=== PATIENT | male | born 1950 | race Caucasian/White ===

== ENCOUNTER → 2018-03-06 14:37 | Outpatient (CLI) | payer MEDICARE, SELFPAY ==
--- NOTE | 2018-03-06 14:45 | XR_ITS ---
XR shoulder RT min 2V HISTORY: ITS.REASON: COMPLETE TEAR OF ROTATOR CUFF ORDERING PHYSICIAN: Hema Perez MD PATIENT AGE: 67 years FINDINGS: Hypertrophic changes are present involving the acromioclavicular joint with mild subacromial stenosis. No fracture or dislocation. There is prominent spurring along the inferior aspect of the AC joint which may result in impingement symptomatology. There are multiple old right-sided rib fractures IMPRESSION: Acromioclavicular arthropathy with subacromial stenosis
== END ==
PROVIDERS: PCP Family Medicine; Visit Provider Family Medicine
DX: M75.121 Complete rotator cuff tear or rupture of right shoulder, not specified as traumatic (principal)
CPT/HCPCS: 73030

== ENCOUNTER 2018-12-17 18:22 | Observation (INO) ==
[2018-12-17 18:58] LABS: Basophils % 0.4 % (0.1-2.0); Eosinophils # 0.1 K/mm3 (0.0-0.4); Eosinophils % 0.8 % (0.1-12.0); Hematocrit 44.6 % (42.0-52.0); Hemoglobin 14.3 g/dL (14.1-18.0); Lymphocytes # 1.6 K/mm3 (0.7-4.5); Mean Corpuscular Hemoglobin 31.4 pg (27.0-31.2); Mean Corpuscular Volume 98.1 fl (80-94); Mean Platelet Volume 7.3 fl (7.4-10.4); Monocytes # 0.6 K/mm3 (0.1-1.0); Monocytes % 7.1 % (1.7-9.3); Neutrophils # 6.1 K/mm3 (1.8-7.8); Neutrophils % 72.8 % (37.0-80.0); Platelet Count 236 K/mm3 (142-424); Red Blood Count 4.54 M/mm3 (4.60-6.20); White Blood Count 8.4 K/mm3 (4.8-10.8)
[2018-12-17 19:13] LABS: Albumin Level 3.7 gm/dL (3.4-5.0); Albumin/Globulin Ratio 0.9 (1.1-1.8); Bilirubin,Total 0.7 mg/dL (0.2-1.0); Calcium 8.7 mg/dL (8.5-10.1); Globulin 4.3 gm/dl (1.3-3.2)
--- NOTE | 2018-12-17 20:40 | Emergency Department Note ---
ED Disposition Clinical Impression: Acute exacerbation of chronic obstructive airways disease Disposition: Admitted as Observation Condition on Discharge: Fair - Critical Care Critical Care Time: No Attestation: On 12/17/18, the high probability of a clinically significant, sudden or life threatening deterioration of the following system(s) required my full and direct attention, intervention and personal management. The time I documented below is in addition to time spent performing reported procedures but includes the foll owing listed in this critical care notation. Medical Decision Making - Medical Records Medical records reviewed: Yes: I reviewed the patient's medical records. - Jamal Inquiry Pt receiving controlled substance: No Jamal was queried for this patient: No Vital Signs: 12/17/18 18:24 12/17/18 18:50 12/17/18 19:53 Temperature 98.5 F Temperature Source Oral Pulse Rate 76 Pulse Rate [Right Brachial] 79 71 Respiratory Rate 15 15 Blood Pressure [Right Arm] 143/74 H 120/61 Blood Pressure Mean [Right Arm] 97 80 02 Sat by Pulse Oximetry 93 L 95 Oxygen Delivery Method Nasal Cannula Oxygen Flow Rate (LPM) 3 - Lab Data Lab results reviewed: Yes: I reviewed the patient's lab results. Lab Results 12/17/18 18:30: WBC 8.4, RBC 4.54 L, Hgb 14.3, Hct 44.6, MCV 98.1 H, MCH 31.4 H, MCHC 32.0, RDW 14.0, Plt Count 236, MPV 7.3 L, Neut % (Auto) 72.8, Lymph % (Auto) 19.0, [place] % (Auto) 7.1, Eos % (Auto) 0.8, Baso % (Auto) 0.4, Neut # (Auto) 6.1, Lymph # (Auto) 1.6, [place] # (Auto) 0.6, Eos # (Auto) 0.1, Baso # (Auto) 0.0 12/17/18 18:30: Sodium 137, Potassium 4.0, Chloride 97 L, Carbon Dioxide 35 H, Anion Gap 9.0, BUN 17, Creatinine 0.97, Estimated Creat Clear 116, Estimated GFR 77, Est GFR ( Amer) 93, Glucose 104, Calcium 8.7, Total Bilirubin 0.7, AST 15, ALT 18, Alkaline Phosphatase 83, Troponin I 0.06, Total Protein 8.0, Albumin 3.7, Globulin 4.3 H, Albumin/Globulin Ratio 0.9 L 12/17/18 18:30: Lactate 1.1 Result diagrams: 12/17/18 18:30 12/17/18 18:30 Orders (Tests/Meds): ED MEDICATIONS Generic Name Dose Route Start Last Admin Trade Name Freq PRN Reason Stop Dose Admin Acetaminophen 650 mg 12/17/18 20:30 Acetaminophen 325mg Tab PO 01/16/19 20:29 Q4HP PRN As Needed for Fever or Pain Albuterol Sulfate 2.5 mg 12/17/18 20:34 Albuterol 0.083% 2.5mg/3ml [facility] 01/16/19 20:33 Q1HP PRN Shortness Of Breath Albuterol/Ipratropium 3 ml 12/17/18 20:34 Duoneb 3ml [facility] 01/16/19 20:33 Q1HP PRN Shortness Of Breath Docusate Sodium 100 mg 12/18/18 09:00 Docusate Sodium 100mg Cap PO 01/17/19 08:59 DAILY SANDI Levofloxacin/Dextrose 750 mg in 150 mls @ 100 mls/hr 12/17/18 20:45 Levofloxacin 750mg/150ml Premix IV 12/31/18 20:44 Q24H SANDI Protocol Ibuprofen 400 mg 12/17/18 20:30 Motrin 400mg Tablet PO 01/16/19 20:29 Q6HP PRN Mild Pain Nicotine 21 mg 12/17/18 20:30 Nicoderm 21mg/24hr Patch TD 01/16/19 20:29 DAILYP PRN Nicotine Cravings Ondansetron HCl 4 mg 12/17/18 20:30 Zofran 4mg/2ml Vial IV 01/16/19 20:29 Q8HP PRN Nausea Pantoprazole Sodium 40 mg 12/18/18 09:00 Protonix 40mg Tablet PO 01/17/19 08:59 DAILY SANDI Discontinued Medications Generic Name Dose Route Start Last Admin Trade Name Freq PRN Reason Stop Dose Admin Dexamethasone Sodium Phosphate 10 mg 12/17/18 18:53 12/17/18 19:02 Decadron 4mg/Ml 1ml Vial IV 12/17/18 18:54 10 mg ONCE ONE Administration Methylprednisolone Sodium Succinate 125 mg 12/17/18 18:27 12/17/18 19:07 Solu-Medrol 125mg/2ml Vial IM 12/17/18 18:28 125 mg ONCE ONE Administration Methylprednisolone Sodium Succinate 125 mg 12/17/18 19:02 12/17/18 19:03 Solu-Medrol 125mg/2ml Vial IV 12/17/18 19:03 125 mg ONCE ONE Administration Sodium Chloride 3 ml 12/17/18 20:34 Sodium Chloride 3% 15ml Neb IH 12/17/18 20:35 ONCE ONE ORDERS Category Date Time Status XR chest portable Stat Exams 12/17/18 18:26 Taken Blood Culture Stat Micro 12/17/18 18:30 Received - Radiology Data #1 Image(s): Chest (Single view chest x-ray no apparent changes from previous x- rays with chronic fibrotic change) Image Reviewed: Yes I reviewed the patient's radiology image Medical Decision Narrative: Differential diagnosis exacerbation of COPD, pneumonia, dyspnea shortness of b reath Patient's chest x-ray is no significant from previous x-ray but it is a single view film Patient was treated with IV steroids DuoNeb and will be started on Levaquin Patient improved with treatment discussed with Dr. Hurt covering for Dr. Perez General Adult HPI - General Chief complaint: Shortness of Breath/Dyspnea Stated complaint: SOA Time Seen by Provider: 12/17/18 18:30 Mode of Arrival: Wheelchair Limitations: No Limitations Description of Symptoms (Recalled from ER Triage Doc. by RN): c/o soa x 3-4 days, heavy smoker, hx of copd - History of Present Illness HPI narrative: Patient with history of COPD on 5 L of oxygen at home who still smokes regularly complains of exacerbation of COPD dyspnea arrives via ambulance - Related Data Home Medications Medication Instructions Recorded Confirmed albuterol sulfate 90 mcg/actuation 1 puff INHALATION Q4-6H PRN 03/27/18 breath activated powder inhaler albuterol sulfate HFA 90 1 puff INHALATION Q4-6H PRN 03/27/18 mcg/actuation aerosol inhaler aspirin 325 mg tablet 325 mg PO BID 03/27/18 atorvastatin 80 mg tablet 80 mg PO ONCE 03/27/18 carvedilol 25 mg tablet 25 mg PO BID 03/27/18 clopidogrel 75 mg tablet 75 mg PO ONCE 03/27/18 fluoxetine 40 mg capsule 40 mg PO BID 03/27/18 fluticasone 250 mcg-salmeterol 50 1 inh INHALATION BID 03/27/18 mcg/dose blistr powdr for inhalation furosemide 40 mg tablet 40 mg PO BID 03/27/18 isosorbide mononitrate ER 30 mg 30 mg PO QAM 03/27/18 tablet,extended release 24 hr montelukast 10 mg tablet 10 mg PO QPM 03/27/18 ranitidine 150 mg capsule 150 mg PO QHS 03/27/18 sacubitril 24 mg-valsartan 26 mg 1 tab PO BID 03/27/18 tablet spironolactone 25 mg tablet 25 mg PO BID 03/27/18 Allergies Allergy/AdvReac Type Severity Reaction Status Date / Time Tetracyclines [TETRACYCLINES] Allergy Unknown I-RASH Verified 12/17/18 18:52 [facility] History - Hepatitis A Screen Drug use history?: No High risk sexual behaviors?: No History of sexually transmitted infection?: No Currently employed?: No Childcare worker?: No Do you have indoor plumbing?: Yes Do you have electricity?: Yes Attestation statement:: This patient has been screened for Hepatitis A risk factors. I have reviewed the patient's past medical history: Yes - Social History Smoking Status: Current every day smoker Alcohol Intake: never ROS Obtained: Yes All systems reviewed & no additional complaints - Constitutional Constitutional: Reports as per HPI - Respiratory Respiratory: Yes as per HPI, Yes dyspnea, Yes dyspnea on exertion, Yes wheezing Physical Exam - General General appearance: alert, anxious Comment: Patient is tachypneic using accessory muscles feeling no evidence cyanosis - Head Head exam: atraumatic, normocephalic, normal inspection - Eye Eye exam: Present: normal appearance, PERRL, EOMI - ENT ENT exam: Present: normal exam, normal oropharynx, mucous membranes moist, TM's normal bilaterally, normal external ear exam - Neck Neck exam: Present: normal inspection, full ROM, trachea midline. Absent: meningismus, lymphadenopathy - Chest Chest inspection: Present: normal inspection, symmetric chest wall rise. Abse nt: tenderness - Respiratory Respiratory exam: Present: respiratory distress, accessory muscle use (Distant breath sounds bilaterally), prolonged expiratory phase - Cardiovascular Cardiovascular exam: Present: regular rate, normal rhythm. Absent: JVD - Abdominal Exam Abdominal exam: Present: soft, normal bowel sounds. Absent: distention, tenderness, guarding - Extremities Exam Extremities exam: Present: normal inspection, full ROM, normal capillary refill. Absent: calf tenderness - Back Exam Back exam: Present: normal inspection. Absent: tenderness - Neurological Exam Neurological exam: Present: alert, oriented X3 - Psychiatric Psychiatric exam: Present: normal affect, normal mood - Skin Skin exam: Present: warm, dry, intact, normal color - Lymphatic Lymphatic Findings: no adenopathy
--- NOTE | 2018-12-18 07:12 | History & Physical Report ---
*Admission Date: 12/17/18 *Chief complaint: Shortness of breath *History of present illness: 68-year-old male with oxygen dependent COPD and coronary artery disease presented to the emergency department with 1 week of increasing shortness of breath. Patient had dyspnea at rest that was worse and also had worsening dyspnea on exertion. Patient estimates he could probably only walk about 30 feet before he became so short of breath and weak that he felt like he was at risk for falling. He denies fevers or chills. He has no change in his baseline angina. Cough is primarily been nonproductive. He denies pedal edema. When he feels short of breath he does get intermittently from use of his albuterol i nhaler [facility] History I have reviewed the patient's past medical history: Yes Medical History: Reports:: Arrhythmia, Atrial Fibrillation, Chronic Obstructive Pulmonary Disease (COPD), Coronary Artery Disease, Hyperlipidemia, Hypertension Denies:: Cancer, Diabetes Mellitus Type 1, Diabetes Mellitus Type 2, MRSA Have you ever received a pneumonia vaccine?: Yes Have you received a flu vaccine this season?: Yes Other Medical History: Reports: Arthritis Laterality Cases: Left: Arthroscopy Shoulder Other Surgeries: Yes: Colonoscopy Amputation: No Fractures: Yes ((R) wrist, ribs) - *Social History Educational Level: Completed High School Smoking Status: Current every day smoker Tobacco Type: cigarettes # Packs/Day (cigarettes): 1 #Yrs smoked (if former smoker): 60 Alcohol Intake: current Alcohol Intake Frequency:: 3 or more drinks per day Substance Use Type: marijuana Occupational Status: retired Housing: apartment Household Members: none Travel in the last 8 weeks: None - Psychiatric History Expresses thoughts of harming self/others: None Suicide Plan Description: No Plan *Family Hx:: Asthma, Coronary Artery Disease, Heart Attack, Hyperlipidemia, Hypertension Review of Systems - Review of Systems Review of systems:: pertinent systems reviewed and negative unless documented below - Constitutional Denies body ache(s), Denies chills, Denies fever(s) - *Cardiovascular Reports chest pain, Reports chest pain with activity - *Respiratory Reports chest congestion, Reports cough, Reports shortness of breath, Reports shortness of breath with activity, Denies change in phlegm color, Denies excessive phlegm production, Denies coughing up blood, Denies pain on inspiration, Denies pain with cough - *Gastrointestinal Denies abdominal pain - *Genitourinary Denies difficulty urinating Meds Home Medications Medication Instructions Recorded Confirmed Type albuterol sulfate 90 mcg/actuation 1 puff INHALATION Q4-6H PRN 03/27/18 History breath activated powder inhaler albuterol sulfate HFA 90 1 puff INHALATION Q4-6H PRN 03/27/18 12/17/18 History mcg/actuation aerosol inhaler aspirin 325 mg tablet 325 mg PO BID 03/27/18 12/17/18 History atorvastatin 80 mg tablet 80 mg PO ONCE 03/27/18 12/17/18 History carvedilol 25 mg tablet 25 mg PO BID 03/27/18 12/17/18 History clopidogrel 75 mg tablet 75 mg PO ONCE 03/27/18 History fluoxetine 40 mg capsule 40 mg PO BID 03/27/18 12/17/18 History fluticasone 250 mcg-salmeterol 50 1 inh INHALATION BID 03/27/18 History mcg/dose blistr powdr for inhalation furosemide 40 mg tablet 40 mg PO BID 03/27/18 History isosorbide mononitrate ER 30 mg 30 mg PO QAM 03/27/18 12/17/18 History tablet,extended release 24 hr montelukast 10 mg tablet 10 mg PO QPM 03/27/18 12/17/18 History ranitidine 150 mg capsule 150 mg PO QHS 03/27/18 12/17/18 History sacubitril 24 mg-valsartan 26 mg 1 tab PO BID 03/27/18 12/17/18 History tablet spironolactone 25 mg tablet 25 mg PO BID 03/27/18 12/17/18 History Apixaban [Eliquis] 5 mg PO BID 12/17/18 12/17/18 History Melatonin/Pyridoxine [Melatonin 5 1 each PO HS 12/17/18 12/17/18 History mg Tablet] Allergies Allergy/AdvReac Type Severity Reaction Status Date / Time Tetracyclines [TETRACYCLINES] Allergy Unknown I-RASH Verified 12/17/18 18:52 Exam Vital signs and Labs for Last 24 Hours: Temp Pulse Resp BP Pulse Ox 97.9 F 78 20 151/77 H 96 12/18/18 04:00 12/18/18 04:00 12/18/18 04:00 12/18/18 04:00 12/18/18 04:00 Laboratory Results - last 24 hr 12/17/18 18:30: WBC 8.4, RBC 4.54 L, Hgb 14.3, Hct 44.6, MCV 98.1 H, MCH 31.4 H, MCHC 32.0, RDW 14.0, Plt Count 236, MPV 7.3 L, Neut % (Auto) 72.8, Lymph % (Auto) 19.0, [place] % (Auto) 7.1, Eos % (Auto) 0.8, Baso % (Auto) 0.4, Neut # (Auto) 6.1, Lymph # (Auto) 1.6, [place] # (Auto) 0.6, Eos # (Auto) 0.1, Baso # (Auto) 0.0 12/17/18 18:30: Sodium 137, Potassium 4.0, Chloride 97 L, Carbon Dioxide 35 H, Anion Gap 9.0, BUN 17, Creatinine 0.97, Estimated Creat Clear 116, Estimated GFR 77, Est GFR ( Amer) 93, Glucose 104, Calcium 8.7, Total Bilirubin 0.7, AST 15, ALT 18, Alkaline Phosphatase 83, Troponin I 0.06, Total Protein 8.0, Albumin 3.7, Globulin 4.3 H, Albumin/Globulin Ratio 0.9 L 12/17/18 18:30: Lactate 1.1 12/18/18 05:59: POC Glucose 172 H I & O for Last 24 hours: Intake & Output 12/15/18 12/16/18 12/17/18 12/18/18 11:59 11:59 11:59 11:59 Output Total 450 / 450 Balance -450 / -450 Weight 259 lb 0.69 oz Microbiology Reports for the Last 24 Hours: Microbiology 12/17/18 19:27 Sputum - Expectorated Sputum Gram Stain - Final Narrative: Patient is sitting on the side of the bed. He has conversational dyspnea. Nasal cannula is in place. Oropharynx is moist. Neck is without lymphadenopathy or jugular venous distention. Lungs have poor aeration with wheezing and rhonchi when deep breathing triggers cough. Heart has an irregularly irregular rate and rhythm. Abdomen is obese. Extremities are without edema. Assessment and Plan (1) Acute on chronic systolic CHF (congestive heart failure) Current visit: Yes Status: Acute Category: Medical Code(s): I50.23 - Acute on chronic systolic (congestive) heart failure (2) Acute exacerbation of chronic obstructive airways disease Current visit: Yes Status: Acute Category: Medical Code(s): J44.1 - Chronic obstructive pulmonary disease with (acute) exacerbation (3) Coronary artery disease Current visit: Yes Status: Acute Category: Medical Code(s): I25.10 - Atherosclerotic heart disease of [place] coronary artery without angina pectoris - Assessment and plan all Dx Assessment and Plan for all problems:: 1. Start Solu-Medrol 60 mg every 8 hours 2. Add Lasix 40 mg IV twice daily 3. Continue duo nebs. 4. Start home medications
--- NOTE | 2018-12-18 07:34 | Pharmacy Consult Notes ---
[facility] Pharmacy VTE Monitoring - Patient Demographics Admission date: 12/17/18 Report Date: 12/18/18 Time: 07:33 Allergies/Adverse Reactions: Patient Allergies Tetracyclines [TETRACYCLINES] Allergy (Unknown, Verified 12/17/18 18:52) I-RASH Height: 1.8 m Weight: 117.5 kg Patient Problems: Current Active Problems Acute exacerbation of chronic obstructive airways disease (Acute) Acute on chronic systolic CHF (congestive heart failure) (Acute) Coronary artery disease (Acute) - VTE Risk Labs: VTE Related Lab Results Hgb 14.3 g/dL (14.1-18.0) 12/17/18 18:30 Hct 44.6 % (42.0-52.0) 12/17/18 18:30 Plt Count 236 K/mm3 (142-424) 12/17/18 18:30 BUN 17 mg/dL (7-18) 12/17/18 18:30 Creatinine 0.97 mg/dL (0.70-1.30) 12/17/18 18:30 Estimated Creat Clear 116 mL/min (50-200) 12/17/18 18:30 Was VTE Risk Assessment Performed: Yes VTE Risk Level: Moderate Risk - Prophylaxis VTE Prophylaxis Ordered?: Yes Types of VTE Prophylaxis: TEDS Knee High, Pharmacological Location of Applied Device: Bilateral Lower Extremeties Pharmacologic Type: Other (ELIQUIS) - VTE Diagnosis Confirmed Treatment or plan recommended: Continue Current Treatment
[2018-12-18 08:25] LABS: Anion Gap 13.8 mEq/L (5-15); Potassium 3.8 mmoL/L (3.5-5.1)
[2018-12-18 16:32] LABS: Basophils % 0.1 % (0.1-2.0); Eosinophils % 0.1 % (0.1-12.0); Hematocrit 43.5 % (42.0-52.0); Hemoglobin 13.8 g/dL (14.1-18.0); Lymphocytes # 0.7 K/mm3 (0.7-4.5); Lymphocytes % 9.8 % (10-50); Mean Corpuscular HGB Conc 31.7 g/dL (31.8-35.4); Mean Corpuscular Hemoglobin 31.4 pg (27.0-31.2); Mean Corpuscular Volume 99.1 fl (80-94); Mean Platelet Volume 9.1 fl (7.4-10.4); Monocytes # 0.1 K/mm3 (0.1-1.0); Monocytes % 1.9 % (1.7-9.3); Neutrophils # 6.6 K/mm3 (1.8-7.8); Neutrophils % 88.1 % (37.0-80.0); Platelet Count 221 K/mm3 (142-424); Red Blood Count 4.39 M/mm3 (4.60-6.20); Red Cell Distribution Width 13.5 % (11.5-17.5); White Blood Count 7.4 K/mm3 (4.8-10.8)
[2018-12-18 16:55] LABS: Lymphocytes % 6 % (10-50); Monocytes % 2 % (2-9); Neutrophils % 88 % (42-76); Total Cells Counted 100
--- NOTE | 2018-12-19 07:10 | Progress Note ---
Internal Medicine - PN: Subj Interval history: Patient reports overall a good night of sleep other than some nausea that was relieved with medication. Breakfast was just delivered and he plans to sit on side of bed and eat. He has not ambulated in room or to bathroom to assess shortness of breath with activity but from what he can tell SOB is overall improved. Denies cough this morning. Exam Vital signs and Labs for Last 24 Hours: Temp Pulse Resp BP Pulse Ox 97.8 F 75 20 106/58 L 96 12/19/18 04:00 12/19/18 04:00 12/19/18 04:00 12/19/18 04:00 12/19/18 04:00 Laboratory Results - last 24 hr 12/18/18 07:35: WBC 7.4, RBC 4.39 L, Hgb 13.8 L, Hct 43.5, MCV 99.1 H, MCH 31.4 H, MCHC 31.7 L, RDW 13.5, Plt Count 221, MPV 9.1, Neut % (Auto) 88.1 H, Lymph % (Auto) 9.8 L, [place] % (Auto) 1.9, Eos % (Auto) 0.1, Baso % (Auto) 0.1, Neut # (Auto) 6.6, Lymph # (Auto) 0.7, [place] # (Auto) 0.1, Eos # (Auto) 0.0, Baso # (Auto) 0.0, Total Counted 100, Neutrophils % (Manual) 88 H, Band Neutrophils % 1.0, Lymphocytes % (Manual) 6 L, Atypical Lymphs % 3.0, Monocytes % (Manual) 2, Platelet Estimate Normal 12/18/18 07:35: Sodium 133 L, Potassium 3.8, Chloride 92 L, Carbon Dioxide 31, A nion Gap 13.8, BUN 23 H D, Creatinine 1.26 D, Estimated Creat Clear 92, Estimated GFR 57 L, Est GFR ( Amer) 69 D, Glucose 157 H D, Calcium 9.0 12/18/18 07:35: B-Natriuretic Peptide 173 H 12/18/18 11:43: POC Glucose 140 H 12/18/18 16:31: POC Glucose 157 H 12/18/18 20:41: POC Glucose 169 H 12/19/18 06:42: POC Glucose 138 H I & O for Last 24 hours: Intake & Output 12/16/18 12/17/18 12/18/18 12/19/18 23:59 23:59 23:59 23:59 Intake Total 150 / 150 840 / 840 Output Total 1850 / 1850 1100 / 1100 Balance 150 / 150 -1010 / -1010 -1100 / -1100 Weight 257 lb 0.944 oz 259 lb 0.69 oz 258 lb 13.163 oz Microbiology Reports for the Last 24 Hours: Microbiology 12/17/18 19:27 Sputum - Expectorated Sputum Gram Stain - Final 12/17/18 19:27 Sputum - Expectorated Sputum Sputum Culture - Preliminary - Constitutional no acute distress, cooperative - *Routine Respiratory Exam Present: decreased breath sounds. Absent: accessory muscle use Comments: pursed lip breathing - *Routine Cardiovascular Exam Present: RRR, Normal S1, Normal S2. Absent: murmur, irregular rhythm - *Routine Abdominal Exam Present: soft, normoactive bowel sounds, tenderness Comments: slight left upper quad tenderness with deep palpation - *Routine Extremities Exam Absent: cyanosis, edema - *Routine Skin Exam Present: intact. Absent: pallor - *Routine Neurological Exam Present: alert, oriented X3 - Routine Psychiatric Exam Present: normal affect Assessment and Plan (1) Acute on chronic systolic CHF (congestive heart failure) Current visit: Yes Status: Acute Category: Medical Code(s): I50.23 - Acute on chronic systolic (congestive) heart failure (2) Acute exacerbation of chronic obstructive airways disease Current visit: Yes Status: Acute Category: Medical Code(s): J44.1 - Chronic obstructive pulmonary disease with (acute) exacerbation (3) Coronary artery disease Current visit: Yes Status: Acute Category: Medical Code(s): I25.10 - Atherosclerotic heart disease of [place] coronary artery without angina pectoris - Assessment and plan all Dx Assessment and Plan for all problems:: Continue monitoring and supportive therapy, may discharge home later today if less dyspnea noted with ambulation and patient feeling up to it.
[2018-12-19 07:58] LABS: Anion Gap 13.5 mEq/L (5-15); Calcium 8.8 mg/dL (8.5-10.1); Potassium 4.5 mmoL/L (3.5-5.1)
--- NOTE | 2018-12-20 07:34 | Discharge Summary ---
General - General Admission date:: 12/17/18 Discharge date: 12/20/18 HPI HPI: 68-year-old male with oxygen dependent COPD and coronary artery disease presented to the emergency department with 1 week of increasing shortness of breath. Patient had dyspnea at rest that was worse and also had worsening dyspnea on exertion. Patient estimates he could probably only walk about 30 feet before he became so short of breath and weak that he felt like he was at risk for falling. He denies fevers or chills. He has no change in his baseline angina. Cough is primarily been nonproductive. He denies pedal edema. When he feels short of breath he does get intermittently from use of his albuterol inhaler Hospital Course Hospital Course: Patient was admitted and placed on Levaquin which was later changed to Rocephin for acute bronchitis associated with COPD exacerbation. Patient was given Solu- Medrol 60 mg every 8 hours as well as duo nebs 4 times daily with as needed nebs ordered as well. Patient would average about 1 as needed neb per 4 hours. Over the course of hospitalization patient showed gradual improvement each day in regards to dyspnea, dyspnea on exertion and cough. Initially cough was prod uctive of light yellow sputum but his cough dried out as hospitalization progressed. Patient did not have any fevers. He was encouraged to a light. Patient was quite weak when ambulating initially but strength improved as hospitalization progressed. Sputum culture ultimately grew out Moraxella catarrhalis. Patient was discharged home on December 20. Objective Vital signs: Temp Pulse Resp BP Pulse Ox 98.4 F 78 18 98/53 L 96 12/20/18 04:00 12/20/18 04:00 12/20/18 04:00 12/20/18 04:00 12/20/18 04:00 Narrative: Patient is awake and alert sitting up on side of the bed. He seems less dyspneic with conversation. Lungs are distant with poor aeration but no wheezing. Heart has a regular rate and rhythm Results Labs on day of discharge: Labs from last 24 hours 12/20/18 12/19/18 12/19/18 05:40 20:41 15:32 Sodium Potassium Chloride Carbon Dioxide Anion Gap BUN Creatinine Estimated Creat Clear Estimated GFR Est GFR ( Amer) Glucose POC Glucose 121 H 136 H 261 H Calcium 12/19/18 12/19/18 10:52 07:40 Sodium 134 L Potassium 4.5 Chloride 95 L Carbon Dioxide 30 Anion Gap 13.5 BUN 29 H D Creatinine 1.26 Estimated Creat Clear 92 Estimated GFR 57 L Est GFR ( Amer) 69 Glucose 207 H POC Glucose 130 H Calcium 8.8 Preliminary micro results at discharge 12/17/18 18:30 Blood Culture - Preliminary Blood NO GROWTH AFTER 48 HOURS 12/17/18 18:30 Blood Culture - Preliminary Blood NO GROWTH AFTER 48 HOURS 12/17/18 19:27 Sputum Culture - Preliminary Sputum - Expectorated Sputum Moraxella catarrhalis DS: Diagnosis - Discharge Diagnosis (1) Acute exacerbation of chronic obstructive airways disease Status: Acute (2) Acute on chronic systolic CHF (congestive heart failure) Status: Acute (3) Coronary artery disease Status: Acute (4) [place]ella catarrhalis bronchitis Status: Acute Discharge Plan - Patient Discharge Instructions ACTIVITY: Continue current activity Patient Instructions: Alcoholism (Alternative Therapy), Chronic Obstructive Pulmonary Disease, DI for Alcohol Abuse, Low-Sodium Diet - Follow up Plan Follow up with: Hema Perez MD [Primary Care Provider] - 12/26/18 1:30 pm Disposition: Home, Self-Long-Term Medications: Home Medications Medication Instructions Recorded Confirmed Type albuterol sulfate HFA 90 1 puff INHALATION Q4-6H PRN 03/27/18 12/17/18 History mcg/actuation aerosol inhaler aspirin 325 mg tablet 325 mg PO DAILY 03/27/18 12/18/18 History atorvastatin 80 mg tablet 80 mg PO HS 03/27/18 12/18/18 History carvedilol 25 mg tablet 25 mg PO BID 03/27/18 12/17/18 History fluoxetine 40 mg capsule 40 mg PO DAILY 03/27/18 12/18/18 History fluticasone 250 mcg-salmeterol 50 1 inh INHALATION BID 03/27/18 12/18/18 History mcg/dose blistr powdr for inhalation isosorbide mononitrate ER 30 mg 30 mg PO DAILY 03/27/18 12/18/18 History tablet,extended release 24 hr montelukast 10 mg tablet 10 mg PO HS 03/27/18 12/18/18 History ranitidine 150 mg capsule 150 mg PO HS 03/27/18 12/18/18 History sacubitril 24 mg-valsartan 26 mg 1 tab PO BID 03/27/18 12/17/18 History tablet Apixaban [Eliquis] 5 mg PO BID 12/17/18 12/17/18 History Fluoxetine HCl 40 mg PO DAILY 12/18/18 12/18/18 History Melatonin 5 mg PO HS 12/18/18 12/18/18 History Spironolactone 25 mg PO DAILY 12/18/18 12/18/18 History cefUROXime axetil [Ceftin 500mg 500 mg PO BID #14 tab 12/20/18 Rx Tab (GEQ)] Prescriptions/Medication Reconciliation: New cefUROXime axetil [Ceftin 500mg Tab (GEQ)] 500 mg PO BID #14 tab Continue aspirin 325 mg tablet 325 mg PO DAILY fluoxetine 40 mg capsule 40 mg PO DAILY fluticasone 250 mcg-salmeterol 50 mcg/dose blistr powdr for inhalation 1 inh INHALATION BID carvedilol 25 mg tablet 25 mg PO BID albuterol sulfate HFA 90 mcg/actuation aerosol inhaler 1 puff INHALATION Q4- 6H PRN PRN Reason: Cough ranitidine 150 mg capsule 150 mg PO HS sacubitril 24 mg-valsartan 26 mg tablet 1 tab PO BID montelukast 10 mg tablet 10 mg PO HS atorvastatin 80 mg tablet 80 mg PO HS isosorbide mononitrate ER 30 mg tablet,extended release 24 hr 30 mg PO DAILY Apixaban [Eliquis] 5 mg PO BID Melatonin 5 mg PO HS Spironolactone 25 mg PO DAILY Fluoxetine HCl 40 mg PO DAILY
== END 2018-12-20 11:57 | disposition home or self-care (01) ==
LOC: 2ND 18:22 → ER 18:22 → 2ND 20:35
PROVIDERS: ADMIT Emergency Medicine; ATTEND Family Medicine
CPT/HCPCS: 36415; 71010; 71045; 80048; 80053; 82962; 83605; 83880; 84484; 85007; 85025; 87040; 87070; 87077; 87184; 87205; 93005; 94640; 94761; 96374; 96375; 99281; G0378; J1956; J2405

== ENCOUNTER 2019-05-26 13:30 | Inpatient (IN) ==
--- NOTE | 2019-05-26 13:57 | Emergency Department Note ---
ED Disposition Clinical Impression: Acute respiratory failure with hypoxia and hypercapnia Disposition: Admitted As Inpatient Condition on Discharge: Fair Referrals: Hema Perez MD [Primary Care Provider] - - Critical Care Critical Care Time: Yes Attestation: On 05/26/19, the high probability of a clinically significant, sudden or life threatening deterioration of the following system(s) required my full and direct attention, intervention and personal management. The time I documented below is in addition to time spent performing reported procedures but includes the following listed in this critical care notation. Total Critical Care Time: 40 Vital system(s) involved:: Respiratory Failure My critical care processes included: Assessment & monitoring of V/S, Initial and Re-exams, Data Review/Interpretation, Coordinating Care, Medication Orders and management, Documentation Medical Decision Making - Jamal Inquiry Pt receiving controlled substance: No Vital Signs: 05/26/19 13:41 05/26/19 14:10 05/26/19 14:15 Temperature 97.8 F Temperature Source Oral Pulse Rate 74 Pulse Rate [Left Radial] 85 76 Respiratory Rate 26 H Blood Pressure [Right Arm] 116/75 103/61 L Blood Pressure Mean [Right Arm] 88 75 Blood Pressure Source [Right Arm] Automatic Cuff Automatic Cuff Blood Pressure Position [Right Arm] Sitting Sitting 02 Sat by Pulse Oximetry 82 L 92 L Oxygen Delivery Method Nasal Cannula Nasal Cannula Oxygen Flow Rate (LPM) 2.5 2.5 05/26/19 16:04 Temperature Temperature Source Pulse Rate Pulse Rate [Left Radial] 71 Respiratory Rate Blood Pressure [Right Arm] 116/72 Blood Pressure Mean [Right Arm] 86 Blood Pressure Source [Right Arm] Blood Pressure Position [Right Arm] 02 Sat by Pulse Oximetry 91 L Oxygen Delivery Method Oxygen Flow Rate (LPM) - Lab Data Lab Results 05/26/19 13:50: WBC 7.8, RBC 4.10 L, Hgb 12.9 L, Hct 41.3 L, MCV 100.8 H, MCH 31.5 H, MCHC 31.3 L, RDW 14.1, Plt Count 156, MPV 8.9, Neut % (Auto) 82.2 H, Lymph % (Auto) 12.2, [place] % (Auto) 5.0, Eos % (Auto) 0.5, Baso % (Auto) 0.1, Neut # (Auto) 6.4, Lymph # (Auto) 1.0, [place] # (Auto) 0.4, Eos # (Auto) 0.0, Baso # (Auto) 0.0 05/26/19 13:50: Sodium 133 L, Potassium 4.6, Chloride 92 L, Carbon Dioxide 37 H, Anion Gap 8.6, BUN 24 H, Creatinine 0.99, Estimated Creat Clear 110, Estimated GFR 75, Est GFR ( Amer) 90, Glucose 180 H, Calcium 8.4 L, Total Bilirubin 1.1 H, AST 22, ALT 28, Alkaline Phosphatase 97, Total Protein 7.3, Albumin 3.1 L , Globulin 4.2 H, Albumin/Globulin Ratio 0.7 L 05/26/19 13:50: B-Natriuretic Peptide 750 H 05/26/19 13:50: Lactate 1.6 05/26/19 13:57: Specimen Source R radial, O2 % 2.5 lpm, ABG pH 7.31 L, ABG pCO2 76.5 H, ABG pO2 61.1 L, ABG HCO3 37.4 H, ABG Total CO2 39.7 H, ABG O2 Saturation 89 L, ABG Base Excess 11.1 H, Kyle Test Acceptable 05/26/19 15:27: Urine Color Yellow, Urine Appearance Cloudy, Urine pH 6.5, Ur Specific [place] 1.020, Urine Protein Trace, Urine Glucose (UA) Negative, Urine Ketones Negative, Urine Blood 3+, Urine Nitrate Negative, Urine Bilirubin Negative, Urine Urobilinogen 1.0, Ur Leukocyte Esterase Negative, Urine RBC 20- 50, Urine WBC Occasional, Ur Squamous Epith Cells Occasional, Urine Bacteria Trace Result diagrams: 05/26/19 13:50 05/26/19 13:50 Orders (Tests/Meds): ED MEDICATIONS Discontinued Medications Generic Name Dose Route Start Last Admin Trade Name Freq PRN Reason Stop Dose Admin Albuterol/Ipratropium 3 ml 05/26/19 13:46 05/26/19 13:57 Duoneb 3ml Neb IH 05/26/19 13:47 3 ml ONCE ONE Administration Ioversol 75 ml 05/26/19 15:56 05/26/19 15:56 Rad-Optiray 350 100ml Vial IV 05/26/19 15:57 75 ml ONCE ONE Administration Protocol Methylprednisolone Sodium Succinate 125 mg 05/26/19 13:50 05/26/19 13:57 Solu-Medrol 125mg/2ml Vial IV 05/26/19 13:51 125 mg ONCE ONE Administration Sodium Chloride 10 ml 05/26/19 15:56 05/26/19 15:56 Rad-Saline Flush 10ml Syringe IV 05/26/19 15:57 10 ml ONCE ONE Administration ORDERS Category Date Time Status Blood Culture Stat Micro 05/26/19 13:46 Received - Radiology Data #1 Image(s): Chest Image Reviewed: Yes I reviewed the patient's radiology image No definite change from prior - CT Data CT Scan: Head, Abdomen, Pelvis Time Received: 16:[address] Reviewed: Yes: I have viewed the radiologist's interpretation Findings Narrative: Head: negative. A/P: IMPRESSION: 1. No acute finding. 2. Aortoiliac stent graft present with mild dilatation of the distal aspect of the right common iliac artery. 3. Other nonacute findings as described above Dictated By: Kyle Garcia MD 05/26/19 1616 - ECG Data Tracing #1 EKG interpreted by Elgin Gallegos MD: Rhythm: Atrial flutter Rate: 77 [place]: normal Ectopy: none Conduction: normal ST Segment Changes: none T Wave Changes: none Q Waves: none No evidence of acute ischemia or injury - Physician Consults Physician Consulted: Luz Maria Perez Time: 17:11 Reason -: Admission Comment/Response: Agrees to admit the patient to the hospital. We discussed the patient's clinical information, including history, exam, laboratory and radiology results and ED course. Per hospital procedure, I will write temporary bridge inpatient orders on the patient. Specific orders requested by the admitting physician: Repeat ABGs in 4 hours. Continue BiPAP, nebulizer treatments, steroids General Adult HPI - General Chief complaint: Shortness of Breath/Dyspnea Stated complaint: SOA Time Seen by Provider: 05/26/19 13:57 Mode of Arrival: Wheelchair Limitations: No Limitations Description of Symptoms (Recalled from ER Triage Doc. by RN): c/o SOA that increased the last 2 weeks with some yellow mucus, daughter states that he hasnt had much of an appetite the last few days and some weakness. - History of Present Illness HPI narrative: Poor historian. Not feeling well for 2 weeks. Main complaint is fatigue and shortness of breath, particularly dyspnea on exertion. He had a cough, but he says that is now better. He does not think he has had a fever. He thinks he has been eating and drinking, but family member doubts this. He has COPD, he is on oxygen at home. He is supposed to use BiPAP, but he refuses to use it. He still smokes. He had chest pain a few days ago. Intermittent. Says it lasts for about 45 minutes at a time. No chest pain for couple of days. Says his abdomen is been hurting for 2 weeks. Denies vomiting or diarrhea. States he has had frequent falls. Apparently was found on the floor yesterday at home. Says he has hit his head. Denies headache. He is on Eliquis for chronic atrial fibrillation/flutter. 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 - Related Data Home Medications Medication Instructions Recorded Confirmed albuterol sulfate HFA 90 1 puff INHALATION Q4-6H PRN 03/27/18 05/26/19 mcg/actuation aerosol inhaler aspirin 325 mg tablet 325 mg PO DAILY 03/27/18 05/26/19 atorvastatin 80 mg tablet 80 mg PO HS 03/27/18 05/26/19 carvedilol 25 mg tablet 25 mg PO BID 03/27/18 05/26/19 fluoxetine 40 mg capsule 40 mg PO DAILY 03/27/18 05/26/19 fluticasone 250 mcg-salmeterol 50 1 inh INHALATION BID 03/27/18 05/26/19 mcg/dose blistr powdr for inhalation isosorbide mononitrate ER 30 mg 30 mg PO DAILY 03/27/18 05/26/19 tablet,extended release 24 hr montelukast 10 mg tablet 10 mg PO HS 03/27/18 05/26/19 ranitidine 150 mg capsule 150 mg PO HS 03/27/18 05/26/19 sacubitril 24 mg-valsartan 26 mg 1 tab PO BID 03/27/18 05/26/19 tablet Apixaban [Eliquis] 5 mg PO BID 12/17/18 05/26/19 Melatonin 5 mg PO HS 12/18/18 05/26/19 Spironolactone 25 mg PO DAILY 12/18/18 05/26/19 Furosemide [Furosemide 40MG tAB] 40 mg PO DAILY 05/26/19 05/26/19 Guaifenesin/Dextromethorphan 1 tab PO DAILY 05/26/19 05/26/19 [Mucinex Dm ER 1,200-60 mg Tab] Allergies Allergy/AdvReac Type Severity Reaction Status Date / Time Tetracyclines [TETRACYCLINES] Allergy Unknown I-RASH Verified 12/17/18 18:52 [facility] History - Hepatitis A Screen Drug use history?: No High risk sexual behaviors?: No History of sexually transmitted infection?: No Currently employed?: No Childcare worker?: No Do you have indoor plumbing?: Yes Do you have electricity?: Yes Attestation statement:: This patient has been screened for Hepatitis A risk factors. I have reviewed the patient's past medical history: Yes Medical History: Reports:: Arrhythmia, Atrial Fibrillation, Chronic Obstructive Pulmonary Disease (COPD), Coronary Artery Disease, Hyperlipidemia, Hypertension Denies:: Cancer, Diabetes Mellitus Type 1, Diabetes Mellitus Type 2, MRSA Other Medical History: Reports: Arthritis Laterality Cases: Left: Arthroscopy Shoulder Other Surgeries: Yes: Colonoscopy Amputation: No Fractures: Yes ((R) wrist, ribs) - Social History Smoking Status: Current every day smoker Tobacco Type: cigarettes # Packs/Day (cigarettes): 1 #Yrs smoked (if former smoker): 60 Alcohol Intake: never Alcohol Intake Frequency:: 3 or more drinks per day Substance Use Type: marijuana Occupational Status: retired Housing: apartment Household Members: none Family Hx:: Asthma, Coronary Artery Disease, Heart Attack, Hyperlipidemia, Hypertension ROS Obtained: Yes All systems reviewed & no additional complaints - Constitutional Constitutional: Reports fatigue, Denies fever(s), Reports frequent falls, Reports weakness - Cardiovascular Cardiovascular: Reports chest pain - Respiratory Respiratory: Yes cough, Yes dyspnea - Gastrointestinal Gastrointestingal: Reports: abdominal pain. Denies: diarrhea, vomiting - Neurologic Neurologic: Denies headache(s) Physical Exam - General General appearance: in no apparent distress, other (Drowsy, but answers questi ons appropriately.) Comment: Tachypnea - Head Head exam: atraumatic, normocephalic - Eye Eye exam: Present: normal appearance, EOMI - ENT ENT exam: Present: mucous membranes moist - Neck Neck exam: Present: normal inspection, full ROM - Chest Chest inspection: Present: normal inspection, symmetric chest wall rise - Respiratory Respiratory exam: Present: normal lung sounds bilaterally, other (Tachypnea) - Cardiovascular Cardiovascular exam: Present: regular rate, irregular rhythm, normal heart so unds - Abdominal Exam Abdominal exam: Present: soft, tenderness, normal bowel sounds. Absent: distention, guarding, rebound, rigidity Abdominal tenderness: Present: diffuse - Extremities Exam Extremities exam: Present: normal inspection - Neurological Exam Neurological exam: Present: CN II-XII intact. Absent: motor sensory deficit - Skin Skin exam: Present: warm, dry
[2019-05-26 14:07] LABS: Basophils % 0.1 % (0.1-2.0); Eosinophils % 0.5 % (0.1-12.0); Hematocrit 41.3 % (42.0-52.0); Hemoglobin 12.9 g/dL (14.1-18.0); Lymphocytes % 12.2 % (10-50); Mean Corpuscular HGB Conc 31.3 g/dL (31.8-35.4); Mean Corpuscular Volume 100.8 fl (80-94); Mean Platelet Volume 8.9 fl (7.4-10.4); Monocytes # 0.4 K/mm3 (0.1-1.0); Neutrophils # 6.4 K/mm3 (1.8-7.8); Neutrophils % 82.2 % (37.0-80.0); Platelet Count 156 K/mm3 (142-424); Red Cell Distribution Width 14.1 % (11.5-17.5); White Blood Count 7.8 K/mm3 (4.8-10.8)
[2019-05-26 14:07] LABS: ABG Base Excess 11.1 mmol/L (-2.4-2.3); ABG HCO3 37.4 mmhg (22.0-26.0); ABG Oxygen Saturation 89 % (90-100); ABG PH 7.31 mmol/L (7.35-7.45); ABG PO2 61.1 mmhg (80-100); ABG TCO2 39.7 mmhg (23-27)
[2019-05-26 14:09] LABS: ABG PCO2 76.5 mmhg (35.0-45.0); Allen's Test ACCEPTABLE; Oxygen 2.5 LPM %
[2019-05-26 14:19] LABS: Albumin Level 3.1 gm/dL (3.4-5.0); Albumin/Globulin Ratio 0.7 (1.1-1.8); Anion Gap 8.6 mEq/L (5-15); Bilirubin,Total 1.1 mg/dL (0.2-1.0); Calcium 8.4 mg/dL (8.5-10.1); Globulin 4.2 gm/dl (1.3-3.2); Total Protein,Serum 7.3 gm/dL (6.4-8.2)
[2019-05-26 16:18] LABS: Microscopic, Urine URINE MICROSCOPIC (MICROSCOPIC)
[2019-05-26 16:20] LABS: Appearance,Urine CLOUDY (Clear); Bilirubin,Urine Negative (Negative); Blood, Urine 3+ (Negative); Color,Urine YELLOW (Yellow); Glucose,Urine (UA) Negative (Negative); Ketones,Urine Negative (Negative); Leukocyte Esterase,Urine Negative (Negative); PH,Urine 6.5 (5.0-8.5); Protein,Urine TRACE (Negative)
[2019-05-26 16:26] LABS: Bacteria,Urine Trace /lpf; RBC,Urine 20-50 #/hpf (0-3); Squamous Epithelial Cell,Urine Occasional #/hpf (0-5); WBC,Urine Occasional #/hpf (0-3)
[2019-05-26 20:36] LABS: ABG Base Excess 11.9 mmol/L (-2.4-2.3); ABG HCO3 36.7 mmhg (22.0-26.0); ABG Oxygen Saturation 97 % (90-100); ABG PO2 97.6 mmhg (80-100); ABG TCO2 38.5 mmhg (23-27)
[2019-05-26 20:38] LABS: Allen's Test Acceptable; Oxygen 30 %
[2019-05-26 20:41] LABS: ABG PCO2 60.3 mmhg (35.0-45.0)
--- NOTE | 2019-05-27 07:08 | History & Physical Report ---
*Admission Date: 05/26/19 *Chief complaint: Shortness of breath *History of present illness: 69-year-old male with history of very severe COPD and coronary artery disease presented to the emergency department with 2 weeks of shortness of breath. Patient was accompanied by family. Most of the history is taken from the ER note as this morning patient is unable to provide a lot of information while wearing BiPAP and he is unable to stay awake long enough. Patient been short of breath for 2 weeks. This morning he confirms he believes he had pneumonia again. His cough however was not productive of any significant discolored sputum. He is unaware of any fevers or chills. [facility] he was found to be in acute respiratory failure with mild hypercapnia and hypoxemia. This was corrected with administration of BiPAP and the patient is remained on BiPAP throughout the night. Significant lab abnormalities include mild elevation of his BNP. Patient was admitted and placed on IV steroids as well as duo nebs along with his home medications. [facility] History I have reviewed the patient's past medical history: Yes Medical History: Reports:: Arrhythmia, Atrial Fibrillation, Chronic Obstructive Pulmonary Disease (COPD), Coronary Artery Disease, Hyperlipidemia, Hypertension Denies:: Cancer, Diabetes Mellitus Type 1, Diabetes Mellitus Type 2, MRSA *Have you ever received a pneumonia vaccine?: (not able to answer) *Have you received a flu vaccine this season?: (not able to answer) Other Medical History: Reports: Arthritis Laterality Cases: Left: Arthroscopy Shoulder Other Surgeries: Yes: Colonoscopy Amputation: No Fractures: Yes ((R) wrist, ribs) - *Social History Smoking Status: Current every day smoker Tobacco Type: cigarettes # Packs/Day (cigarettes): 1 #Yrs smoked (if former smoker): 60 Alcohol Intake: current Alcohol Intake Frequency:: 0-2 drinks per day Substance Use Type: marijuana *Occupational Status:: retired Housing: apartment Household Members: none *Travel in the last 8 weeks: None Family Hx:: Asthma, Coronary Artery Disease, Heart Attack, Hyperlipidemia, Hypertension Review of Systems - Review of Systems Review of systems:: unable to obtain - *Neurologic Reports frequent falls, Reports weakness, Denies headache(s) Meds Home Medications Medication Instructions Recorded Confirmed Type albuterol sulfate HFA 90 1 puff INHALATION Q4-6H PRN 03/27/18 05/26/19 History mcg/actuation aerosol inhaler aspirin 325 mg tablet 325 mg PO DAILY 03/27/18 05/26/19 History atorvastatin 80 mg tablet 80 mg PO HS 03/27/18 05/26/19 History carvedilol 25 mg tablet 25 mg PO BID 03/27/18 05/26/19 History fluoxetine 40 mg capsule 40 mg PO DAILY 03/27/18 05/26/19 History fluticasone 250 mcg-salmeterol 50 1 inh INHALATION BID 03/27/18 05/26/19 History mcg/dose blistr powdr for inhalation isosorbide mononitrate ER 30 mg 30 mg PO DAILY 03/27/18 05/26/19 History tablet,extended release 24 hr montelukast 10 mg tablet 10 mg PO HS 03/27/18 05/26/19 History ranitidine 150 mg capsule 150 mg PO HS 03/27/18 05/26/19 History sacubitril 24 mg-valsartan 26 mg 1 tab PO BID 03/27/18 05/26/19 History tablet Apixaban [Eliquis] 5 mg PO BID 12/17/18 05/26/19 History Melatonin 5 mg PO HS 12/18/18 05/26/19 History Spironolactone 25 mg PO DAILY 12/18/18 05/26/19 History Furosemide [Furosemide 40MG tAB] 40 mg PO DAILY 05/26/19 05/26/19 History Guaifenesin/Dextromethorphan 1 tab PO DAILY 05/26/19 05/26/19 History [Mucinex Dm ER 1,200-60 mg Tab] Allergies Allergy/AdvReac Type Severity Reaction Status Date / Time Tetracyclines [TETRACYCLINES] Allergy Unknown I-RASH Verified 12/17/18 18:52 Exam Vital signs and Labs for Last 24 Hours: Temp Pulse Resp BP Pulse Ox 97.6 F 83 23 96/61 L 93 L 05/27/19 03:45 05/27/19 05:57 05/27/19 03:45 05/27/19 03:45 05/27/19 03:45 Laboratory Results - last 24 hr 05/26/19 13:50: WBC 7.8, RBC 4.10 L, Hgb 12.9 L, Hct 41.3 L, MCV 100.8 H, MCH 31.5 H, MCHC 31.3 L, RDW 14.1, Plt Count 156, MPV 8.9, Neut % (Auto) 82.2 H, Lymph % (Auto) 12.2, [place] % (Auto) 5.0, Eos % (Auto) 0.5, Baso % (Auto) 0.1, Neut # (Auto) 6.4, Lymph # (Auto) 1.0, [place] # (Auto) 0.4, Eos # (Auto) 0.0, Baso # (Auto) 0.0 05/26/19 13:50: Sodium 133 L, Potassium 4.6, Chloride 92 L, Carbon Dioxide 37 H, Anion Gap 8.6, BUN 24 H, Creatinine 0.99, Estimated Creat Clear 110, Estimated GFR 75, Est GFR ( Amer) 90, Glucose 180 H, Calcium 8.4 L, Total Bilirubin 1.1 H, AST 22, ALT 28, Alkaline Phosphatase 97, Total Protein 7.3, Albumin 3.1 L, Globulin 4.2 H, Albumin/Globulin Ratio 0.7 L 05/26/19 13:50: B-Natriuretic Peptide 750 H 05/26/19 13:50: Lactate 1.6 05/26/19 13:57: Specimen Source R radial, O2 % 2.5 lpm, ABG pH 7.31 L, ABG pCO2 76.5 H, ABG pO2 61.1 L, ABG HCO3 37.4 H, ABG Total CO2 39.7 H, ABG O2 Saturation 89 L, ABG Base Excess 11.1 H, Kyle Test Acceptable 05/26/19 15:27: Urine Color Yellow, Urine Appearance Cloudy, Urine pH 6.5, Ur Specific [place] 1.020, Urine Protein Trace, Urine Glucose (UA) Negative, Urine Ketones Negative, Urine Blood 3+, Urine Nitrate Negative, Urine Bilirubin Negative, Urine Urobilinogen 1.0, Ur Leukocyte Esterase Negative, Urine RBC 20- 50, Urine WBC Occasional, Ur Squamous Epith Cells Occasional, Urine Bacteria Trace 05/26/19 20:00: Specimen Source Right radial, O2 % 30, ABG pH 7.40, ABG pCO2 60.3 H, ABG pO2 97.6, ABG HCO3 36.7 H, ABG Total CO2 38.5 H, ABG O2 Saturation 97, ABG Base Excess 11.9 H, Kyle Test Acceptable, Vent Rate 18, [place] Volume Bipap 18/6 I & O for Last 24 hours: Intake & Output 05/24/19 05/25/19 05/26/19 05/27/19 11:59 11:59 11:59 11:59 Intake Total 568 / 568 Output Total 250 / 250 Balance 318 / 318 Weight 246 lb 5 oz Narrative: Patient is laying comfortably in bed. He is in no respiratory distress and respirations are not increased. He does awaken to vocal and tactile stimulus. He answers questions with head nods and makes attempts to speak but his voice is very weak. Pupils are reactive to light. Oropharynx is dry from use of BiPAP. Neck is without lymphadenopathy. Lungs have diminished breath sounds throughout with rhonchi heard throughout. He also has some end expiratory wheezing heard posteriorly. Heart has a regular rate and rhythm. Abdomen is obese and soft. Extremities are warm to the touch. Assessment and Plan (1) Acute exacerbation of chronic obstructive airways disease Current visit: No Status: Acute Category: Medical Code(s): J44.1 - Chronic obstructive pulmonary disease with (acute) exacerbation Continue IV steroids and duo nebs. Patient will be given IV azithromycin. Collect sputum culture. X-ray is negative for infiltrate (2) Acute on chronic systolic CHF (congestive heart failure) Current visit: No Status: Acute Category: Medical Code(s): I50.23 - Acute on chronic systolic (congestive) heart failure Patient be given IV Lasix twice daily. Due to some hypotension overnight likely from the noninvasive ventilation patient isosorbide and Entresto will be held. Spironolactone will be held (3) Coronary artery disease Current visit: No Status: Acute Category: Medical Code(s): I25.10 - Atherosclerotic heart disease of [place] coronary artery without angina pectoris (4) Fall at home Current visit: Yes Status: Acute Category: Medical Code(s): W19.XXXA - Unspecified fall, initial encounter; Y92.009 - Unspecified place in unspecified non-institutional (private) residence as the place of occurrence of the external cause
[2019-05-27 07:40] LABS: Basophils % 0.1 % (0.1-2.0); Eosinophils # 0.1 K/mm3 (0.0-0.4); Eosinophils % 0.3 % (0.1-12.0); Hematocrit 42.7 % (42.0-52.0); Hemoglobin 12.9 g/dL (14.1-18.0); Lymphocytes # 0.5 K/mm3 (0.7-4.5); Lymphocytes % 2.8 % (10-50); Mean Corpuscular HGB Conc 30.3 g/dL (31.8-35.4); Mean Corpuscular Volume 102.6 fl (80-94); Monocytes # 0.4 K/mm3 (0.1-1.0); Monocytes % 2.7 % (1.7-9.3); Neutrophils # 14.8 K/mm3 (1.8-7.8); Platelet Count 155 K/mm3 (142-424); Red Blood Count 4.16 M/mm3 (4.60-6.20); Red Cell Distribution Width 14.3 % (11.5-17.5); White Blood Count 15.7 K/mm3 (4.8-10.8)
[2019-05-27 07:51] LABS: Anion Gap 7.5 mEq/L (5-15); Calcium 8.9 mg/dL (8.5-10.1)
--- NOTE | 2019-05-27 08:41 | Pharmacy Consult Notes ---
[facility] Pharmacy VTE Monitoring - Patient Demographics Admission date: 05/27/19 Report Date: 05/27/19 Time: 08:41 Allergies/Adverse Reactions: Patient Allergies Tetracyclines [TETRACYCLINES] Allergy (Unknown, Verified 12/17/18 18:52) I-RASH Height: 1.88 m Weight: 111.725 kg Patient Problems: Current Active Problems (Updated 05/27/19 @ 07:12 by Hema Perez MD) Acute respiratory failure with hypoxia and hypercapnia (Acute) Fall at home (Acute) - VTE Risk Labs: VTE Related Lab Results Hgb 12.9 g/dL (14.1-18.0) L 05/27/19 07:24 Hct 42.7 % (42.0-52.0) 05/27/19 07:24 Plt Count 155 K/mm3 (142-424) 05/27/19 07:24 BUN 25 mg/dL (7-18) H 05/27/19 07:24 Creatinine 0.93 mg/dL (0.70-1.30) 05/27/19 07:24 Estimated Creat Clear 109 mL/min (50-200) 05/27/19 07:24 Was VTE Risk Assessment Performed: Yes VTE Score: 4 VTE Risk Level: Low Risk Clinical Trial Participant: No - Prophylaxis VTE Prophylaxis Ordered?: Yes Types of VTE Prophylaxis: TEDS Knee High
[2019-05-27 10:16] LABS: Hypochromasia 1+; Lymphocytes % 4 % (10-50); Macrocytosis 1+; Monocytes % 2 % (2-9); Neutrophils % 92 % (42-76); Total Cells Counted 100
--- NOTE | 2019-05-28 07:06 | Progress Note ---
Internal Medicine - PN: Subj *Date: 05/28/19 *Time: 07:04 Interval history: Patient has no new complaints this morning. He has no recollection of my morning rounds and speaking with him yesterday. No significant changes throughout the day yesterday and he was placed back on BiPAP overnight as he supposed to be using noninvasive ventilation at home for sleep apnea. He denies any specific complaints other than shortness of breath this morning and he confirms multiple falls at home over the last several weeks Exam Vital signs and Labs for Last 24 Hours: Temp Pulse Resp BP Pulse Ox 98.0 F 80 20 121/72 94 L 05/28/19 04:00 05/28/19 06:30 05/28/19 04:00 05/28/19 04:00 05/28/19 06:30 Laboratory Results - last 24 hr 05/27/19 07:24: WBC 15.7 H D, RBC 4.16 L, Hgb 12.9 L, Hct 42.7, MCV 102.6 H, MCH 31.1, MCHC 30.3 L, RDW 14.3, Plt Count 155, MPV 8.0, Neut % (Auto) 94.0 H, Lymph % (Auto) 2.8 L, [place] % (Auto) 2.7, Eos % (Auto) 0.3, Baso % (Auto) 0.1, Neut # (Auto) 14.8 H, Lymph # (Auto) 0.5 L, [place] # (Auto) 0.4, Eos # (Auto) 0.1, Baso # (Auto) 0.0, Total Counted 100, Neutrophils % (Manual) 92 H, Band Neutrophils % 2.0, Lymphocytes % (Manual) 4 L, Monocytes % (Manual) 2, Platelet Estimate Normal, Hypochromasia 1+, Macrocytosis 1+ 05/27/19 07:24: Sodium 135 L, Potassium 4.5, [place] 95 L, Carbon Dioxide 37 H, Anion Gap 7.5, BUN 25 H, Creatinine 0.93, Estimated Creat Clear 109, Estimated GFR 80, Est GFR ( Amer) 97, Glucose 143 H D, Calcium 8.9 I & O for Last 24 hours: Intake & Output 05/25/19 05/26/19 05/27/19 05/28/19 11:59 11:59 11:59 11:59 Intake Total 1048 / 1048 1090 / 1090 Output Total 250 / 250 1900 / 1900 Balance 798 / 798 -810 / -810 Weight 246 lb 5 oz 247 lb 7 oz Microbiology Reports for the Last 24 Hours: Microbiology 05/27/19 13:04 Sputum - Expectorated Sputum Gram Stain - Final Narrative: Patient is in no distress and appears comfortable on the BiPAP. He is not as conversant as usual. He looks very tired. Lung exam has poor aeration with some scattered rhonchi heard both anteriorly and posteriorly. Heart has an ir regular rate and rhythm. Assessment and Plan (1) Acute exacerbation of chronic obstructive airways disease Current visit: No Status: Acute Category: Medical Code(s): J44.1 - Chronic obstructive pulmonary disease with (acute) exacerbation (2) Acute on chronic systolic CHF (congestive heart failure) Current visit: No Status: Acute Category: Medical Code(s): I50.23 - Acute on chronic systolic (congestive) heart failure (3) Coronary artery disease Current visit: No Status: Acute Category: Medical Code(s): I25.10 - Atherosclerotic heart disease of [place] coronary artery without angina pectoris (4) Fall at home Current visit: Yes Status: Acute Category: Medical Code(s): W19.XXXA - Unspecified fall, initial encounter; Y92.009 - Unspecified place in unspecified non-institutional (private) residence as the place of occurrence of the external cause - Assessment and plan all Dx Assessment and Plan for all problems:: 1. Continue current measures. I will restart patient's spironolactone today and monitor blood pressure closely. 2. White blood cell count is increased which I believe is due to the steroids. Steroids will be cut back to 60 mg every 8 hours 3. PT eval today.
[2019-05-28 08:41] LABS: Basophils % 0.1 % (0.1-2.0); Eosinophils # 0.1 K/mm3 (0.0-0.4); Eosinophils % 0.7 % (0.1-12.0); Hemoglobin 12.6 g/dL (14.1-18.0); Lymphocytes # 0.4 K/mm3 (0.7-4.5); Lymphocytes % 2.1 % (10-50); Mean Platelet Volume 8.4 fl (7.4-10.4); Monocytes # 0.2 K/mm3 (0.1-1.0); Monocytes % 1.3 % (1.7-9.3); Neutrophils # 16.6 K/mm3 (1.8-7.8); Neutrophils % 95.9 % (37.0-80.0); Platelet Count 171 K/mm3 (142-424); Red Blood Count 4.08 M/mm3 (4.60-6.20); Red Cell Distribution Width 14.2 % (11.5-17.5); White Blood Count 17.3 K/mm3 (4.8-10.8)
[2019-05-28 09:45] LABS: Anion Gap 10.5 mEq/L (5-15); Calcium 9.1 mg/dL (8.5-10.1)
[2019-05-28 12:40] LABS: Hypochromasia 1+; Lymphocytes % 3 % (10-50); Macrocytosis 2+; Monocytes % 2 % (2-9); Neutrophils % 91 % (42-76); Total Cells Counted 100
[2019-05-28 12:41] LABS: Anisocytosis 1+; Stomatocytes 1+
--- NOTE | 2019-05-29 06:49 | Progress Note ---
Internal Medicine - PN: Subj *Date: 05/29/19 *Time: 06:47 Interval history: Patient has no complaints this morning. He continues to have dyspnea although he feels like his returning to his baseline. He has been having some lightheadedness upon standing. Blood pressures are running a little low. He denies chest pain. Exam Vital signs and Labs for Last 24 Hours: Temp Pulse Resp BP Pulse Ox 97.9 F 80 16 122/69 91 L 05/29/19 04:13 05/29/19 04:13 05/29/19 04:13 05/29/19 04:13 05/29/19 04:13 Laboratory Results - last 24 hr 05/28/19 08:20: WBC 17.3 H, RBC 4.08 L, Hgb 12.6 L, Hct 42.0, MCV 103.0 H, MCH 30.9, MCHC 30.0 L, RDW 14.2, Plt Count 171, MPV 8.4, Neut % (Auto) 95.9 H, Lymph % (Auto) 2.1 L, [place] % (Auto) 1.3 L, Eos % (Auto) 0.7, Baso % (Auto) 0.1, Neut # (Auto) 16.6 H, Lymph # (Auto) 0.4 L, [place] # (Auto) 0.2, Eos # (Auto) 0.1, Baso # (Auto) 0.0, Total Counted 100, Neutrophils % (Manual) 91 H, Band Neutrophils % 4.0, Lymphocytes % (Manual) 3 L, Monocytes % (Manual) 2, Platelet Estimate Normal, Hypochromasia 1+, Anisocytosis 1+, Macrocytosis 2+, Stomatocytes 1+ 05/28/19 08:20: Sodium 133 L, Potassium 4.5, [place] 93 L, Carbon Dioxide 34 H, Anion Gap 10.5, BUN 34 H D, Creatinine 1.24 D, Estimated Creat Clear 88, Estimated GFR 58 L, Est GFR ( Amer) 70 D, Glucose 229 H, Calcium 9.1 I & O for Last 24 hours: Intake & Output 05/26/19 05/27/19 05/28/19 05/29/19 11:59 11:59 11:59 11:59 Intake Total 1048 / 1048 1570 / 1570 240 / 240 Output Total 250 / 250 1900 / 1900 850 / 850 Balance 798 / 798 -330 / -330 -610 / -610 Weight 246 lb 5 oz 247 lb 7 oz 248 lb Microbiology Reports for the Last 24 Hours: Microbiology 05/26/19 13:46 Blood Blood Culture - Preliminary NO GROWTH AFTER 48 HOURS 05/26/19 13:46 Blood Blood Culture - Preliminary NO GROWTH AFTER 48 HOURS 05/27/19 13:04 Sputum - Expectorated Sputum Gram Stain - Final 05/27/19 13:04 Sputum - Expectorated Sputum Sputum Culture - Preliminary Gram Negative Rods Narrative: He is resting comfortably with BiPAP on. Oropharynx is dry. Neck has no carotid bruits. Lungs have distant breath sounds with better aeration this morning than yesterday. Expiratory wheezes heard posteriorly. Heart has a regular rate and rhythm. Abdomen is soft and obese. Lower extremities have no edema Assessment and Plan (1) Acute exacerbation of chronic obstructive airways disease Current visit: No Status: Acute Category: Medical Code(s): J44.1 - Chronic obstructive pulmonary disease with (acute) exacerbation (2) Acute on chronic systolic CHF (congestive heart failure) Current visit: No Status: Acute Category: Medical Code(s): I50.23 - Acute on chronic systolic (congestive) heart failure (3) Coronary artery disease Current visit: No Status: Acute Category: Medical Code(s): I25.10 - Atherosclerotic heart disease of [place] coronary artery without angina pectoris (4) Fall at home Current visit: Yes Status: Acute Category: Medical Code(s): W19.XXXA - Unspecified fall, initial encounter; Y92.009 - Unspecified place in unspecified non-institutional (private) residence as the place of occurrence of the external cause (5) Acute bronchitis Current visit: Yes Status: Acute Category: Medical Code(s): J20.9 - Acute bronchitis, unspecified - Assessment and plan all Dx Assessment and Plan for all problems:: 1. Start patient on Rocephin due to gram-negative sputum 2. Repeat CBC in a.m. 3. Restart patient's Entresto 4. Continue to increase activity level
[2019-05-29 07:54] LABS: Basophils % 0.1 % (0.1-2.0); Eosinophils % 0.1 % (0.1-12.0); Hematocrit 37.8 % (42.0-52.0); Hemoglobin 11.5 g/dL (14.1-18.0); Lymphocytes # 0.4 K/mm3 (0.7-4.5); Mean Corpuscular HGB Conc 30.5 g/dL (31.8-35.4); Monocytes # 0.6 K/mm3 (0.1-1.0); Monocytes % 4.6 % (1.7-9.3); Neutrophils # 12.3 K/mm3 (1.8-7.8); Neutrophils % 92.2 % (37.0-80.0); Platelet Count 163 K/mm3 (142-424); White Blood Count 13.4 K/mm3 (4.8-10.8)
[2019-05-29 07:56] LABS: Anion Gap 5.5 mEq/L (5-15); Calcium 8.9 mg/dL (8.5-10.1)
[2019-05-29 10:11] LABS: Hypochromasia 1+; Lymphocytes % 1 % (10-50); Monocytes % 3 % (2-9); Neutrophils % 91 % (42-76); Total Cells Counted 100
[2019-05-30 06:33] LABS: Basophils % 0.1 % (0.1-2.0); Eosinophils % 0.2 % (0.1-12.0); Hematocrit 36.9 % (42.0-52.0); Hemoglobin 11.1 g/dL (14.1-18.0); Lymphocytes # 0.9 K/mm3 (0.7-4.5); Lymphocytes % 7.1 % (10-50); Mean Corpuscular HGB Conc 30.1 g/dL (31.8-35.4); Monocytes # 0.9 K/mm3 (0.1-1.0); Monocytes % 7.4 % (1.7-9.3); Neutrophils # 10.5 K/mm3 (1.8-7.8); Neutrophils % 85.2 % (37.0-80.0); Platelet Count 154 K/mm3 (142-424); Red Blood Count 3.77 M/mm3 (4.60-6.20); Red Cell Distribution Width 13.9 % (11.5-17.5); White Blood Count 12.3 K/mm3 (4.8-10.8)
--- NOTE | 2019-05-30 07:30 | Progress Note ---
Internal Medicine - PN: Subj *Date: 05/30/19 *Time: 07:27 Interval history: Patient is awake and sitting up in chair this morning eating breakfast. He reports very little improvement over the last 24 hours. He remains weak. His cough is productive of minimal amounts of sputum. He has not had any fevers. Exam Vital signs and Labs for Last 24 Hours: Temp Pulse Resp BP Pulse Ox 98.0 F 65 20 99/60 L 93 L 05/30/19 04:00 05/30/19 06:53 05/30/19 04:00 05/30/19 04:00 05/30/19 06:53 Laboratory Results - last 24 hr 05/29/19 07:10: WBC 13.4 H, RBC 3.90 L, Hgb 11.5 L, Hct 37.8 L, MCV 97.0 H, MCH 29.6, MCHC 30.5 L, RDW 14.0, Plt Count 163, MPV 8.0, Neut % (Auto) 92.2 H, Lymph % (Auto) 3.0 L, [place] % (Auto) 4.6, Eos % (Auto) 0.1, Baso % (Auto) 0.1, Neut # (Auto) 12.3 H, Lymph # (Auto) 0.4 L, [place] # (Auto) 0.6, Eos # (Auto) 0.0, Baso # (Auto) 0.0, Total Counted 100, Neutrophils % (Manual) 91 H, Band Neutrophils % 2.0, Lymphocytes % (Manual) 1 L, Monocytes % (Manual) 3, Metamyelocytes % 3.0 H, Platelet Estimate Normal, Hypochromasia 1+ 05/29/19 07:10: Sodium 137, Potassium 4.5, [place] 97 L, Carbon Dioxide 39 H, Anion Gap 5.5, BUN 36 H, Creatinine 0.90 D, Estimated Creat Clear 109, Estimated GFR 83, Est GFR ( Amer) 101 D, Glucose 134 H D, Calcium 8.9 05/30/19 06:10: WBC 12.3 H, RBC 3.77 L, Hgb 11.1 L, Hct 36.9 L, MCV 98.0 H, MCH 29.5, MCHC 30.1 L, RDW 13.9, Plt Count 154, MPV 8.0, Neut % (Auto) 85.2 H, Lymph % (Auto) 7.1 L, [place] % (Auto) 7.4, Eos % (Auto) 0.2, Baso % (Auto) 0.1, Neut # (Auto) 10.5 H, Lymph # (Auto) 0.9, [place] # (Auto) 0.9, Eos # (Auto) 0.0, Baso # (Auto) 0.0 I & O for Last 24 hours: Intake & Output 05/27/19 05/28/19 05/29/19 05/30/19 11:59 11:59 11:59 11:59 Intake Total 1048 / 1048 1570 / 1570 480 / 480 460 / 460 Output Total 250 / 250 1900 / 1900 850 / 850 240 / 240 Balance 798 / 798 -330 / -330 -370 / -370 220 / 220 Weight 246 lb 5 oz 247 lb 7 oz 248 lb 249 lb 0.003 oz Microbiology Reports for the Last 24 Hours: Microbiology 05/27/19 13:04 Sputum - Expectorated Sputum Gram Stain - Final 05/27/19 13:04 Sputum - Expectorated Sputum Sputum Culture - Final Pseudomonas aeruginosa Narrative: He appears comfortable with no increased work of breathing. Lung exam reveals poor aeration with expiratory wheezes heard anteriorly and rales heard in the left lung base. Assessment and Plan (1) Pseudomonas pneumonia Current visit: Yes Status: Acute Category: Medical Code(s): J15.1 - Pneumonia due to Pseudomonas Plan will be for 1 week of IV antibiotics with Levaquin and cefepime that was initiated yesterday (05/29/2019). (2) Acute exacerbation of chronic obstructive airways disease Current visit: No Status: Acute Category: Medical Code(s): J44.1 - Chronic obstructive pulmonary disease with (acute) exacerbation IV steroids were discontinued yesterday. With recurring of wheezing patient will be started on low-dose oral steroids (3) Acute on chronic systolic CHF (congestive heart failure) Current visit: No Status: Resolved Category: Medical Code(s): I50.23 - Acute on chronic systolic (congestive) heart failure (4) Coronary artery disease Current visit: No Status: Acute Category: Medical Code(s): I25.10 - Atherosclerotic heart disease of [place] coronary artery without angina pectoris (5) Fall at home Current visit: Yes Status: Acute Category: Medical Code(s): W19.XXXA - Unspecified fall, initial encounter; Y92.009 - Unspecified place in unspecified non-institutional (private) residence as the place of occurrence of the external cause Physical therapy evaluated the patient and he will continue PT while hospitalized. At discharge patient will be temporarily living with a daughter in [place]. Home health can be arranged
[2019-05-30 07:44] LABS: Anion Gap 4.9 mEq/L (5-15); Calcium 8.5 mg/dL (8.5-10.1)
[2019-05-30 09:26] LABS: Lymphocytes % 7 % (10-50); Monocytes % 5 % (2-9); Neutrophils % 88 % (42-76); RBC Morphology Normal; Total Cells Counted 100
[2019-05-31 07:34] LABS: Basophils % 0.1 % (0.1-2.0); Eosinophils % 0.5 % (0.1-12.0); Hematocrit 41.5 % (42.0-52.0); Hemoglobin 12.2 g/dL (14.1-18.0); Lymphocytes # 1.5 K/mm3 (0.7-4.5); Lymphocytes % 18.4 % (10-50); Mean Corpuscular HGB Conc 29.5 g/dL (31.8-35.4); Mean Corpuscular Volume 99.7 fl (80-94); Mean Platelet Volume 8.7 fl (7.4-10.4); Monocytes # 0.7 K/mm3 (0.1-1.0); Monocytes % 8.2 % (1.7-9.3); Neutrophils # 5.8 K/mm3 (1.8-7.8); Neutrophils % 72.8 % (37.0-80.0); Platelet Count 163 K/mm3 (142-424); Red Blood Count 4.16 M/mm3 (4.60-6.20)
[2019-05-31 07:58] LABS: Anion Gap 4.7 mEq/L (5-15); Calcium 8.7 mg/dL (8.5-10.1)
--- NOTE | 2019-05-31 08:21 | Progress Note ---
Internal Medicine - PN: Subj *Date: 05/31/19 *Time: 08:19 Interval history: Patient states he had a rough night because of some difficulty sleeping with his BiPAP machine and a hospital bed with some positional discomfort issues. He sitting up in his chair eating breakfast. Has a wet cough productive of some green sputum. Exam Vital signs and Labs for Last 24 Hours: Temp Pulse Resp BP Pulse Ox 98.9 F 82 18 117/71 97 05/31/19 08:00 05/31/19 08:00 05/31/19 08:00 05/31/19 08:00 05/31/19 08:00 Laboratory Results - last 24 hr 05/30/19 06:10: Total Counted 100, Neutrophils % (Manual) 88 H, Lymphocytes % (Manual) 7 L, Monocytes % (Manual) 5, Platelet Estimate Normal, RBC Morphology Normal 05/31/19 07:10: WBC 8.0 D, RBC 4.16 L, Hgb 12.2 L, Hct 41.5 L, MCV 99.7 H, MCH 29.4, MCHC 29.5 L, RDW 14.0, Plt Count 163, MPV 8.7, Neut % (Auto) 72.8, Lymph % (Auto) 18.4, [place] % (Auto) 8.2, Eos % (Auto) 0.5, Baso % (Auto) 0.1, Neut # (Auto) 5.8, Lymph # (Auto) 1.5, [place] # (Auto) 0.7, Eos # (Auto) 0.0, Baso # (Auto) 0.0 05/31/19 07:10: Sodium 138, Potassium 4.7, [place] 99, Carbon Dioxide 39 H, Anion Gap 4.7 L, BUN 30 H, Creatinine 0.97, Estimated Creat Clear 112, Estimated GFR 77, Est GFR ( Amer) 93, Glucose 83, Calcium 8.7 I & O for Last 24 hours: Intake & Output 05/28/19 05/29/19 05/30/19 05/31/19 11:59 11:59 11:59 11:59 Intake Total 1570 / 1570 480 / 480 850 / 850 1200 / 1200 Output Total 1900 / 1900 850 / 850 240 / 240 Balance -330 / -330 -370 / -370 610 / 610 1200 / 1200 Weight 247 lb 7 oz 248 lb 249 lb 0.003 oz 253 lb 7 oz Narrative: Heart rate regular. Alert. Oriented x3. No JVD. Oropharynx clear. Lungs have loose rhonchi with minimal bibasilar crackles but fairly good air entry. Patient able to pull 1200 mL's on the incentive spirometer. Trace ankle edema. Abdomen soft. Assessment and Plan (1) Pseudomonas pneumonia Current visit: Yes Status: Acute Category: Medical Code(s): J15.1 - Pneumonia due to Pseudomonas (2) Acute exacerbation of chronic obstructive airways disease Current visit: No Status: Acute Category: Medical Code(s): J44.1 - Chronic obstructive pulmonary disease with (acute) exacerbation (3) Acute on chronic systolic CHF (congestive heart failure) Current visit: No Status: Resolved Category: Medical Code(s): I50.23 - Acute on chronic systolic (congestive) heart failure (4) Coronary artery disease Current visit: No Status: Acute Category: Medical Code(s): I25.10 - Atherosclerotic heart disease of [place] coronary artery without angina pectoris (5) Fall at home Current visit: Yes Status: Acute Category: Medical Code(s): W19.XXXA - Unspecified fall, initial encounter; Y92.009 - Unspecified place in unspecified non-institutional (private) residence as the place of occurrence of the external cause - Assessment and plan all Dx Assessment and Plan for all problems:: Patient seems to be progressing but very slowly. Continue current plan of aggressive antibiotic therapy, pulmonary toilet. Patient needs PT and home health evaluation. Continues to require inpatient management at this time.
--- NOTE | 2019-06-01 07:22 | Progress Note ---
Internal Medicine - PN: Subj *Date: 06/01/19 *Time: 07:21 Interval history: Patient has no complaints this morning. He admits he is feeling a little bit better. Cough is somewhat more productive. He is ambulating with walker and standby assist. Exam Vital signs and Labs for Last 24 Hours: Temp Pulse Resp BP Pulse Ox 98.0 F 85 18 113/69 95 06/01/19 04:00 06/01/19 06:06 06/01/19 04:00 06/01/19 04:00 06/01/19 06:06 Laboratory Results - last 24 hr 05/31/19 07:10: WBC 8.0 D, RBC 4.16 L, Hgb 12.2 L, Hct 41.5 L, MCV 99.7 H, MCH 29.4, MCHC 29.5 L, RDW 14.0, Plt Count 163, MPV 8.7, Neut % (Auto) 72.8, Lymph % (Auto) 18.4, [place] % (Auto) 8.2, Eos % (Auto) 0.5, Baso % (Auto) 0.1, Neut # (Auto) 5.8, Lymph # (Auto) 1.5, [place] # (Auto) 0.7, Eos # (Auto) 0.0, Baso # (Auto) 0.0 05/31/19 07:10: Sodium 138, Potassium 4.7, [place] 99, Carbon Dioxide 39 H, Anion Gap 4.7 L, BUN 30 H, Creatinine 0.97, Estimated Creat Clear 112, Estimated GFR 77, Est GFR ( Amer) 93, Glucose 83, Calcium 8.7 I & O for Last 24 hours: Intake & Output 05/29/19 05/30/19 05/31/19 06/01/19 11:59 11:59 11:59 11:59 Intake Total 480 / 480 850 / 850 1350 / 1350 1780 / 1780 Output Total 850 / 850 240 / 240 1300 / 1300 Balance -370 / -370 610 / 610 1350 / 1350 480 / 480 Weight 248 lb 249 lb 0.003 oz 253 lb 7 oz 256 lb 6.996 oz Microbiology Reports for the Last 24 Hours: Microbiology 05/26/19 13:46 Blood Blood Culture - Final NO GROWTH AFTER 5 DAYS 05/26/19 13:46 Blood Blood Culture - Final NO GROWTH AFTER 5 DAYS Narrative: He appears comfortable sitting up in chair. Lung exam continues to have poor aeration but rales that were present in the left lung base have decreased. No wheezing is heard Assessment and Plan (1) Pseudomonas pneumonia Current visit: Yes Status: Acute Category: Medical Code(s): J15.1 - Pneumonia due to Pseudomonas (2) Acute exacerbation of chronic obstructive airways disease Current visit: No Status: Acute Category: Medical Code(s): J44.1 - Chronic obstructive pulmonary disease with (acute) exacerbation (3) Acute on chronic systolic CHF (congestive heart failure) Current visit: No Status: Resolved Category: Medical Code(s): I50.23 - Acute on chronic systolic (congestive) heart failure (4) Coronary artery disease Current visit: No Status: Acute Category: Medical Code(s): I25.10 - Atherosclerotic heart disease of [place] coronary artery without angina pectoris (5) Fall at home Current visit: Yes Status: Acute Category: Medical Code(s): W19.XXXA - Unspecified fall, initial encounter; Y92.009 - Unspecified place in unspecified non-institutional (private) residence as the place of occurrence of the external cause - Assessment and plan all Dx Assessment and Plan for all problems:: 1. Continue IV antibiotics and encourage the patient to continue to ambulate 2. Wean steroids
--- NOTE | 2019-06-01 07:48 | Progress Note ---
Internal Medicine - PN: Subj *Date: 06/01/19 *Time: 07:48 Exam Vital signs and Labs for Last 24 Hours: Temp Pulse Resp BP Pulse Ox 98.3 F 82 18 115/64 96 06/01/19 07:41 06/01/19 07:41 06/01/19 07:41 06/01/19 07:41 06/01/19 07:41 Laboratory Results - last 24 hr 05/31/19 07:10: Sodium 138, Potassium 4.7, [place] 99, Carbon Dioxide 39 H, Anion Gap 4.7 L, BUN 30 H, Creatinine 0.97, Estimated Creat [place] 112, Estimated GFR 77, Est GFR ( Amer) 93, Glucose 83, Calcium 8.7 I & O for Last 24 hours: Intake & Output 05/29/19 05/30/19 05/31/19 06/01/19 23:59 23:59 23:59 23:59 Intake Total 750 / 750 1210 / 1210 1320 / 1790 1420 / 1420 Output Total 240 / 240 1300 / 1300 Balance 510 / 510 1210 / 1210 1320 / 1290 120 / 120 Weight 112.491 kg 112.945 kg 114.957 kg 116.318 kg Microbiology Reports for the Last 24 Hours: Microbiology 05/26/19 13:46 Blood Blood Culture - Final NO GROWTH AFTER 5 DAYS 05/26/19 13:46 Blood Blood Culture - Final NO GROWTH AFTER 5 DAYS Assessment and Plan (1) Pseudomonas pneumonia Current visit: Yes Status: Acute Category: Medical Code(s): J15.1 - Pneumonia due to Pseudomonas (2) Acute exacerbation of chronic obstructive airways disease Current visit: No Status: Acute Category: Medical Code(s): J44.1 - Chronic obstructive pulmonary disease with (acute) exacerbation (3) Acute on chronic systolic CHF (congestive heart failure) Current visit: No Status: Resolved Category: Medical Code(s): I50.23 - Acute on chronic systolic (congestive) heart failure (4) Coronary artery disease Current visit: No Status: Acute Category: Medical Code(s): I25.10 - Atherosclerotic heart disease of [place] coronary artery without angina pectoris (5) Fall at home Current visit: Yes Status: Acute Category: Medical Code(s): W19.XXXA - Unspecified fall, initial encounter; Y92.009 - Unspecified place in unspecified non-institutional (private) residence as the place of occurrence of the external cause The patient's infection will respond to the chosen ABx?: Yes Is the patient receiving the right drug, dose, and route?: Yes Could a more targeted ABx be ordered?: No
--- NOTE | 2019-06-02 06:55 | Progress Note ---
Internal Medicine - PN: Subj *Date: 06/02/19 *Time: 06:54 Interval history: Patient has no complaints this morning. He feels like he is near baseline. He is ambulating a little more each day cough continues to have small amounts of sputum. He remains afebrile Exam Vital signs and Labs for Last 24 Hours: Temp Pulse Resp BP Pulse Ox 97.9 F 80 18 107/89 L 98 06/02/19 04:00 06/02/19 06:16 06/02/19 04:00 06/02/19 04:00 06/02/19 06:16 I & O for Last 24 hours: Intake & Output 05/30/19 05/31/19 06/01/19 06/02/19 11:59 11:59 11:59 11:59 Intake Total 850 / 850 1350 / 1350 2410 / 2410 930 / 930 Output Total 240 / 240 1300 / 1300 Balance 610 / 610 1350 / 1350 1110 / 1110 930 / 930 Weight 249 lb 0.003 oz 253 lb 7 oz 256 lb 6.996 oz 261 lb 3 oz Narrative: Lung exam reveals distant breath sounds throughout with rhonchi in the bases that clear with deep breathing and coughing. Heart has a regular rate and rhythm Assessment and Plan (1) Pseudomonas pneumonia Current visit: Yes Status: Acute Category: Medical Code(s): J15.1 - Pneumonia due to Pseudomonas (2) Acute exacerbation of chronic obstructive airways disease Current visit: No Status: Acute Category: Medical Code(s): J44.1 - Chronic obstructive pulmonary disease with (acute) exacerbation (3) Acute on chronic systolic CHF (congestive heart failure) Current visit: No Status: Resolved Category: Medical Code(s): I50.23 - Acute on chronic systolic (congestive) heart failure (4) Coronary artery disease Current visit: No Status: Acute Category: Medical Code(s): I25.10 - Atherosclerotic heart disease of [place] coronary artery without angina pectoris (5) Fall at home Current visit: Yes Status: Acute Category: Medical Code(s): W19.XXXA - Uns pecified fall, initial encounter; Y92.009 - Unspecified place in unspecified non-institutional (private) residence as the place of occurrence of the external cause - Assessment and plan all Dx Assessment and Plan for all problems:: 1. Continue cefepime and Levaquin until 06/04/2019. Anticipate discharge that day
--- NOTE | 2019-06-03 06:58 | Progress Note ---
Internal Medicine - PN: Subj *Date: 06/03/19 *Time: 06:56 Interval history: Patient has no complaints this morning. He slept well. He is ambulating within his room as required. He feels like his dyspnea has returned to baseline Exam Vital signs and Labs for Last 24 Hours: Temp Pulse Resp BP Pulse Ox 98.4 F 52 L 20 108/54 L 92 L 06/03/19 04:00 06/03/19 05:48 06/03/19 04:00 06/03/19 04:00 06/03/19 05:48 I & O for Last 24 hours: Intake & Output 05/31/19 06/01/19 06/02/19 06/03/19 11:59 11:59 11:59 11:59 Intake Total 1350 / 1350 2410 / 2410 1290 / 1290 720 / 720 Output Total 1300 / 1300 850 / 850 Balance 1350 / 1350 1110 / 1110 1290 / 1290 -130 / -130 Weight 253 lb 7 oz 256 lb 6.996 oz 261 lb 3 oz 263 lb 1 oz Narrative: Patient appears comfortable this morning. Lungs are distant with some rhonchi anteriorly that clear with cough. Left lung base is without rales this morning Assessment and Plan (1) Pseudomonas pneumonia Current visit: Yes Status: Acute Category: Medical Code(s): J15.1 - Pneumonia due to Pseudomonas (2) Acute exacerbation of chronic obstructive airways disease Current visit: No Status: Acute Category: Medical Code(s): J44.1 - Chronic obstructive pulmonary disease with (acute) exacerbation (3) Acute on chronic systolic CHF (congestive heart failure) Current visit: No Status: Resolved Category: Medical Code(s): I50.23 - Acute on chronic systolic (congestive) heart failure (4) Coronary artery disease Current visit: No Status: Acute Category: Medical Code(s): I25.10 - Atherosclerotic heart disease of [place] coronary artery without angina pectoris (5) Fall at home Current visit: Yes Status: Acute Category: Medical Code(s): W19.XXXA - Unspecified fall, initial encounter; Y92.009 - Unspecified place in unspecified non-institutional (private) residence as the place of occurrence of the external cause - Assessment and plan all Dx Assessment and Plan for all problems:: Anticipate another day of antibiotics with plans to discharge tomorrow after completion of 7 days of dual antibiotic therapy for his Pseudomonas pneumonia
--- NOTE | 2019-06-04 07:05 | Progress Note ---
Internal Medicine - PN: Subj *Date: 06/04/19 *Time: 07:03 Interval history: Patient developed some chest tightness yesterday evening and was found to be in atrial fibrillation with a rate of 140 bpm. He was transferred to stepdown and placed on a Cardizem drip and converted back to his atrial flutter by late in the evening. He is remained in atrial flutter all night with ventricular rate in the 70s and 80s. Cardizem drip was discontinued prior to midnight. He admits he has episodes like this at home although does not define how frequently Exam Vital signs and Labs for Last 24 Hours: Temp Pulse Resp BP Pulse Ox 98.1 F 79 17 101/67 L 97 06/03/19 20:35 06/04/19 06:30 06/04/19 04:00 06/04/19 06:29 06/04/19 06:30 Laboratory Results - last 24 hr 06/03/19 19:55: Troponin I 0.03 06/03/19 21:32: POC Glucose 117 H 06/03/19 22:38: Troponin I 0.03 I & O for Last 24 hours: Intake & Output 06/01/19 06/02/19 06/03/19 06/04/19 11:59 11:59 11:59 11:59 Intake Total 2410 / 2410 1290 / 1290 1080 / 1080 2862 / 2862 Output Total 1300 / 1300 850 / 850 1645 / 1645 Balance 1110 / 1110 1290 / 1290 230 / 230 1217 / 1217 Weight 256 lb 6.996 oz 261 lb 3 oz 263 lb 1 oz 261 lb 8 oz Narrative: He is in no distress and appears comfortable this morning. Lungs are distant. Heart rate is also distant but sound somewhat regular Assessment and Plan (1) Pseudomonas pneumonia Current visit: Yes Status: Acute Category: Medical Code(s): J15.1 - Pneumonia due to Pseudomonas (2) Acute exacerbation of chronic obstructive airways disease Current visit: No Status: Acute Category: Medical Code(s): J44.1 - Chronic obstructive pulmonary disease with (acute) exacerbation (3) Acute on chronic systolic CHF (congestive heart failure) Current visit: No Status: Resolved Category: Medical Code(s): I50.23 - Acute on chronic systolic (congestive) heart failure (4) Coronary artery disease Current visit: No Status: Acute Category: Medical Code(s): I25.10 - Atherosclerotic heart disease of [place] coronary artery without angina pectoris (5) Fall at home Current visit: Yes Status: Acute Category: Medical Code(s): W19.XXXA - Unspecified fall, initial encounter; Y92.009 - Unspecified place in unspecified non-institutional (private) residence as the place of occurrence of the external cause (6) Atrial flutter Current visit: Yes Status: Acute Category: Medical Code(s): I48.92 - Unspecified atrial flutter - Assessment and plan all Dx Assessment and Plan for all problems:: 1. Check echocardiogram today. Patient is already anticoagulated on Eliquis. 2. Today patient will complete a 7-day course of dual antibiotic therapy for his Pseudomonas. Initial plan had been discharged today but due to this occurrence of uncontrolled atrial fib he will be observed for an additional 24 hours.
--- NOTE | 2019-06-04 15:37 | Cardiology Report ---
PROCEDURE: 2-D M-mode and color Doppler study INDICATIONS FOR THE TEST: Chest pain COPDX Heart Murmur Tobacco Smoking Palpitations Fatigue Syncope Edema Hypertension Diabetes Mellitus Rheumatic Fever SOBXDOE ObesityXHyperlipidemia Family History HD Additional History A FLUTTER,CAD,PACER,CABG PATIENT INFORMATION HEIGHT: 74 WEIGHT:261 GENDER: Male B/P:101/67 2-D/M-MODE INTERPRETATION: 2-D MEASUREMENTS OBSERVED VALUES IN CMS Right Ventricular Dimension (RVDd) 1.2 Interventricular Septum (Thickness)(IVsd) 1.2 Left Ventricular Internal Dimensions(LVIDd) 6.4 Left Ventricular Posterior Wall (Thickness)(LVPWd) 1.2 Aortic Root 3.9 Aortic Cusp Separation 1.6 Left Atrial Dimensions (LAD) 5.0 2D 1. Left atrium is moderately enlarged, left ventricle is mildly dilated, severely reduced left ventricular systolic function, visually estimated ejection fraction 30%, left ventricle is globally hypokinetic, endocardial surfaces are poorly visualized, a repeat study with Definity contrast is recommended. 2. The right atrium and right ventricle are mildly enlarged with normal contractility, there is a pacemaker lead seen right ventricle. 3. The aortic valve is minimally thickened and fibrosed. 4. The mitral and tricuspid valve leaflets are minimally thickened. 5. The pulmonic valve is poorly visualized. 6. No significant pericardial effusion noted. DOPPLER INTERROGATION: Doppler interrogation of the aortic, mitral and tricuspid valvular presence of mild mitral and tricuspid regurgitation, tricuspid regurgitation jet velocity is inadequate for calculation of the right ventricular systolic pressure, diastolic parameters are inconclusive, Doppler evidence of low cardiac output state is also seen. CONCLUSION: 1. Technically difficult study because of the patient's factor and poor acoustic windows, repeat study with definitely contrast is recommended. 2. Dilated left ventricle, severely reduced left ventricular systolic function, visually estimated ejection fraction approximately 30%, left ventricle is globally hypokinetic, endocardial surfaces are very poorly visualized. 3. Doppler evidence of low cardiac output state. 4. Mild mitral and tricuspid regurgitation 5. No significant pericardial effusion noted.
--- NOTE | 2019-06-05 07:22 | Discharge Summary ---
General - General Admission date:: 05/26/19 Discharge date: 06/05/19 HPI HPI: 69-year-old male with history of very severe COPD and coronary artery disease presented to the emergency department with 2 weeks of shortness of breath. Patient was accompanied by family. Most of the history is taken from the ER note as this morning patient is unable to provide a lot of information while wearing BiPAP and he is unable to stay awake long enough. Patient been short of breath for 2 weeks. This morning he confirms he believes he had pneumonia again. His cough however was not productive of any significant discolored sputum. He is unaware of any fevers or chills. When he presented to the emergency department he was found to be in acute respiratory failure with mild hypercapnia and hypoxemia. This was corrected with administration of BiPAP and the patient is remained on BiPAP throughout the night. Significant lab abnormalities include mild elevation of his BNP. Patient was admitted and placed on IV steroids as well as duo nebs along with his home medications. Hospital Course Hospital Course: Patient was admitted for treatment of COPD exacerbation with IV Solu-Medrol and aerosols. Initial chest x-ray was interpreted as chronic changes without signs of infiltrate. For his COPD exacerbation azithromycin was added. Patient was stable for the first 48 hours. Within the first 24 hours sputum culture began to turn positive and Rocephin was added to the patient's regimen. Clinically his exam was more consistent with a left lower lobe pneumonia. On May 29 sputum culture was positive for Pseudomonas. It was at this point the patient's antibiotics were changed to cefepime and Levaquin. Patient remained on this regimen for 7 days to complete an adequate course of IV antibiotics to treat pseudomonal pneumonia. At discharge she will not need any further antibiotics Patient has a history of left ventricular systolic dysfunction and is on heart failure regimen. On admission patient was mildly hypotensive. I discontinued his spironolactone. Patient's normal dose of IV Lasix was divided into twice daily dosing intravenously. Patient only had trace edema of the lower extremities but did have mild elevation of BNP and so was treated for an acute on chronic exacerbation of heart failure in addition to his COPD. After 4 days of diuresis Lasix were held due to continued hypotension. Lasix and spironolactone were held the remainder of hospitalization. Patient's carvedilol and Entresto were continued. Initial plan had been to discharge patient on June 04 after he completed a course of IV antibiotics for his pseudomonal pneumonia. However late in the evening on the the patient developed chest tightness and was found to be in A. fib with a rapid ventricular response. During entire hospitalization patient had been in atrial flutter. Patient was transferred to the stepdown unit and placed on a Cardizem drip which quickly converted the patient back to atrial flutter that was rate controlled. Patient was weaned from the drip by late in the evening on June 03. Echocardiogram was ordered the following day, June 04, and this showed persistence of patient's LV dysfunction with ejection fraction of 30%. Patient will continue his carvedilol and Entresto. He will also continue his use of diuretic. Digoxin was added to his regimen due to the atrial fibrillation. Patient has obstructive sleep apnea but has not used his home BiPAP for many years due to the discomfort of the mask. He was much more comfortable in hospital and used BiPAP nightly. His home medical company will be contacted prior to discharge they will bring the patient a new mask so he may continue to use his BiPAP at home. Patient had been living alone locally but at discharge will be moving to [place] to live with his daughter. Patient tells me he plans to stay in [place] are permanent. He has been advised to establish with a [place] physician within the next month. Objective Vital signs: Temp Pulse Resp BP Pulse Ox 97.8 F 78 19 94/57 L 99 06/05/19 04:00 06/05/19 04:00 06/05/19 04:00 06/05/19 04:00 06/05/19 04:00 no acute distress - *Routine Neck Exam Present: supple. Absent: JVD, carotid bruit - *Routine Respiratory Exam Comments: Distant breath sounds throughout with mixed rhonchi that clear with cough. - *Routine Cardiovascular Exam Present: irregular rhythm - *Routine Skin Exam Present: dry Results Completed studies during hospitalization [Text1]: Laboratory Tests 05/26/19 05/26/19 05/26/19 13:50 13:50 13:50 WBC 7.8 RBC 4.10 L Hgb 12.9 L Hct 41.3 L MCV 100.8 H MCH 31.5 H MCHC 31.3 L RDW 14.1 Plt Count 156 MPV 8.9 Neut % (Auto) 82.2 H Lymph % (Auto) 12.2 [place] % (Auto) 5.0 Eos % (Auto) 0.5 Baso % (Auto) 0.1 Neut # (Auto) 6.4 Lymph # (Auto) 1.0 [place] # (Auto) 0.4 Eos # (Auto) 0.0 Baso # (Auto) 0.0 Total Counted Neutrophils % (Manual) Band Neutrophils % Lymphocytes % (Manual) Monocytes % (Manual) Metamyelocytes % Platelet Estimate RBC Morphology Hypochromasia Anisocytosis Macrocytosis Stomatocytes Specimen Source O2 % ABG pH ABG pCO2 ABG pO2 ABG HCO3 ABG Total CO2 ABG O2 Saturation ABG Base Excess Kyle Test Vent Rate Tidal Volume Sodium 133 L Potassium 4.6 Chloride 92 L Carbon Dioxide 37 H Anion Gap 8.6 BUN 24 H Creatinine 0.99 Estimated Creat Clear 110 Estimated GFR 75 Est GFR ( Amer) 90 Glucose 180 H POC Glucose Lactate Calcium 8.4 L Total Bilirubin 1.1 H AST 22 ALT 28 Alkaline Phosphatase 97 Troponin I B-Natriuretic Peptide 750 H Total Protein 7.3 Albumin 3.1 L Globulin 4.2 H Albumin/Globulin Ratio 0.7 L Urine Color Urine Appearance Urine pH Ur Specific [place] Urine Protein Urine Glucose (UA) Urine Ketones Urine Blood Urine Nitrate Urine Bilirubin Urine Urobilinogen Ur Leukocyte Esterase Urine RBC Urine WBC Ur Squamous Epith Cells Urine Bacteria 05/26/19 05/26/19 05/26/19 13:50 13:57 15:27 WBC RBC Hgb Hct MCV MCH MCHC RDW Plt Count MPV Neut % (Auto) Lymph % (Auto) [place] % (Auto) Eos % (Auto) Baso % (Auto) Neut # (Auto) Lymph # (Auto) [place] # (Auto) Eos # (Auto) Baso # (Auto) Total Counted Neutrophils % (Manual) Band Neutrophils % Lymphocytes % (Manual) Monocytes % (Manual) Metamyelocytes % Platelet Estimate RBC Morphology Hypochromasia Anisocytosis Macrocytosis Stomatocytes Specimen Source R radial O2 % 2.5 lpm ABG pH 7.31 L ABG pCO2 76.5 H ABG pO2 61.1 L ABG HCO3 37.4 H ABG Total CO2 39.7 H ABG O2 Saturation 89 L ABG Base Excess 11.1 H Kyle Test Acceptable Vent Rate Tidal Volume Sodium Potassium Chloride Carbon Dioxide Anion Gap BUN Creatinine Estimated Creat Clear Estimated GFR Est GFR ( Amer) Glucose POC Glucose Lactate 1.6 Calcium Total Bilirubin AST ALT Alkaline Phosphatase Troponin I B-Natriuretic Peptide Total Protein Albumin Globulin Albumin/Globulin Ratio Urine Color Yellow Urine Appearance Cloudy Urine pH 6.5 Ur Specific [place] 1.020 Urine Protein Trace Urine Glucose (UA) Negative Urine Ketones Negative Urine Blood 3+ Urine Nitrate Negative Urine Bilirubin Negative Urine Urobilinogen 1.0 Ur Leukocyte Esterase Negative Urine RBC 20-50 Urine WBC Occasional Ur Squamous Epith Cells Occasional Urine Bacteria Trace 05/26/19 05/27/19 05/27/19 20:00 07:24 07:24 WBC 15.7 H D RBC 4.16 L Hgb 12.9 L Hct 42.7 MCV 102.6 H MCH 31.1 MCHC 30.3 L RDW 14.3 Plt Count 155 MPV 8.0 Neut % (Auto) 94.0 H Lymph % (Auto) 2.8 L [place] % (Auto) 2.7 Eos % (Auto) 0.3 Baso % (Auto) 0.1 Neut # (Auto) 14.8 H Lymph # (Auto) 0.5 L [place] # (Auto) 0.4 Eos # (Auto) 0.1 Baso # (Auto) 0.0 Total Counted 100 Neutrophils % (Manual) 92 H Band Neutrophils % 2.0 Lymphocytes % (Manual) 4 L Monocytes % (Manual) 2 Metamyelocytes % Platelet Estimate Normal RBC Morphology Hypochromasia 1+ Anisocytosis Macrocytosis 1+ Stomatocytes Specimen Source Right radial O2 % 30 ABG pH 7.40 ABG pCO2 60.3 H ABG pO2 97.6 ABG HCO3 36.7 H ABG Total CO2 38.5 H ABG O2 Saturation 97 ABG Base Excess 11.9 H Kyle Test Acceptable Vent Rate 18 Tidal Volume Bipap 18/6 Sodium 135 L Potassium 4.5 Chloride 95 L Carbon Dioxide 37 H Anion Gap 7.5 BUN 25 H Creatinine 0.93 Estimated Creat Clear 109 Estimated GFR 80 Est GFR ( Amer) 97 Glucose 143 H D POC Glucose Lactate Calcium 8.9 Total Bilirubin AST ALT Alkaline Phosphatase Troponin I B-Natriuretic Peptide Total Protein Albumin Globulin Albumin/Globulin Ratio Urine Color Urine Appearance Urine pH Ur Specific [place] Urine Protein Urine Glucose (UA) Urine Ketones Urine Blood Urine Nitrate Urine Bilirubin Urine Urobilinogen Ur Leukocyte Esterase Urine RBC Urine WBC Ur Squamous Epith Cells Urine Bacteria 05/28/19 05/28/19 05/29/19 08:20 08:20 07:10 WBC 17.3 H 13.4 H RBC 4.08 L 3.90 L Hgb 12.6 L 11.5 L Hct 42.0 37.8 L MCV 103.0 H 97.0 H MCH 30.9 29.6 MCHC 30.0 L 30.5 L RDW 14.2 14.0 Plt Count 171 163 MPV 8.4 8.0 Neut % (Auto) 95.9 H 92.2 H Lymph % (Auto) 2.1 L 3.0 L [place] % (Auto) 1.3 L 4.6 Eos % (Auto) 0.7 0.1 Baso % (Auto) 0.1 0.1 Neut # (Auto) 16.6 H 12.3 H Lymph # (Auto) 0.4 L 0.4 L [place] # (Auto) 0.2 0.6 Eos # (Auto) 0.1 0.0 Baso # (Auto) 0.0 0.0 Total Counted 100 100 Neutrophils % (Manual) 91 H 91 H Band Neutrophils % 4.0 2.0 Lymphocytes % (Manual) 3 L 1 L Monocytes % (Manual) 2 3 Metamyelocytes % 3.0 H Platelet Estimate Normal Normal RBC Morphology Hypochromasia 1+ 1+ Anisocytosis 1+ Macrocytosis 2+ Stomatocytes 1+ Specimen Source O2 % ABG pH ABG pCO2 ABG pO2 ABG HCO3 ABG Total CO2 ABG O2 Saturation ABG Base Excess Kyle Test Vent Rate Tidal Volume Sodium 133 L Potassium 4.5 Chloride 93 L Carbon Dioxide 34 H Anion Gap 10.5 BUN 34 H D Creatinine 1.24 D Estimated Creat Clear 88 Estimated GFR 58 L Est GFR ( Amer) 70 D Glucose 229 H POC Glucose Lactate Calcium 9.1 Total Bilirubin AST ALT Alkaline Phosphatase Troponin I B-Natriuretic Peptide Total Protein Albumin Globulin Albumin/Globulin Ratio Urine Color Urine Appearance Urine pH Ur Specific [place] Urine Protein Urine Glucose (UA) Urine Ketones Urine Blood Urine Nitrate Urine Bilirubin Urine Urobilinogen Ur Leukocyte Esterase Urine RBC Urine WBC Ur Squamous Epith Cells Urine Bacteria 05/29/19 05/30/19 05/30/19 07:10 06:10 06:10 WBC 12.3 H RBC 3.77 L Hgb 11.1 L Hct 36.9 L MCV 98.0 H MCH 29.5 MCHC 30.1 L RDW 13.9 Plt Count 154 MPV 8.0 Neut % (Auto) 85.2 H Lymph % (Auto) 7.1 L [place] % (Auto) 7.4 Eos % (Auto) 0.2 Baso % (Auto) 0.1 Neut # (Auto) 10.5 H Lymph # (Auto) 0.9 [place] # (Auto) 0.9 Eos # (Auto) 0.0 Baso # (Auto) 0.0 Total Counted 100 Neutrophils % (Manual) 88 H Band Neutrophils % Lymphocytes % (Manual) 7 L Monocytes % (Manual) 5 Metamyelocytes % Platelet Estimate Normal RBC Morphology Normal Hypochromasia Anisocytosis Macrocytosis Stomatocytes Specimen Source O2 % ABG pH ABG pCO2 ABG pO2 ABG HCO3 ABG Total CO2 ABG O2 Saturation ABG Base Excess Kyle Test Vent Rate Tidal Volume Sodium 137 137 Potassium 4.5 4.9 Chloride 97 L 97 L Carbon Dioxide 39 H 40 H Anion Gap 5.5 4.9 L BUN 36 H 36 H Creatinine 0.90 D 0.91 Estimated Creat Clear 109 110 Estimated GFR 83 82 Est GFR ( Amer) 101 D 100 Glucose 134 H D 101 D POC Glucose Lactate Calcium 8.9 8.5 Total Bilirubin AST ALT Alkaline Phosphatase Troponin I B-Natriuretic Peptide Total Protein Albumin Globulin Albumin/Globulin Ratio Urine Color Urine Appearance Urine pH Ur Specific [place] Urine Protein Urine Glucose (UA) Urine Ketones Urine Blood Urine Nitrate Urine Bilirubin Urine Urobilinogen Ur Leukocyte Esterase Urine RBC Urine WBC Ur Squamous Epith Cells Urine Bacteria 05/31/19 05/31/19 06/03/19 07:10 07:10 19:55 WBC 8.0 D RBC 4.16 L Hgb 12.2 L Hct 41.5 L MCV 99.7 H MCH 29.4 MCHC 29.5 L RDW 14.0 Plt Count 163 MPV 8.7 Neut % (Auto) 72.8 Lymph % (Auto) 18.4 [place] % (Auto) 8.2 Eos % (Auto) 0.5 Baso % (Auto) 0.1 Neut # (Auto) 5.8 Lymph # (Auto) 1.5 [place] # (Auto) 0.7 Eos # (Auto) 0.0 Baso # (Auto) 0.0 Total Counted Neutrophils % (Manual) Band Neutrophils % Lymphocytes % (Manual) Monocytes % (Manual) Metamyelocytes % Platelet Estimate RBC Morphology Hypochromasia Anisocytosis Macrocytosis Stomatocytes Specimen Source O2 % ABG pH ABG pCO2 ABG pO2 ABG HCO3 ABG Total CO2 ABG O2 Saturation ABG Base Excess Kyle Test Vent Rate Tidal Volume Sodium 138 Potassium 4.7 Chloride 99 Carbon Dioxide 39 H Anion Gap 4.7 L BUN 30 H Creatinine 0.97 Estimated Creat Clear 112 Estimated GFR 77 Est GFR ( Amer) 93 Glucose 83 POC Glucose Lactate Calcium 8.7 Total Bilirubin AST ALT Alkaline Phosphatase Troponin I 0.03 B-Natriuretic Peptide Total Protein Albumin Globulin Albumin/Globulin Ratio Urine Color Urine Appearance Urine pH Ur Specific [place] Urine Protein Urine Glucose (UA) Urine Ketones Urine Blood Urine Nitrate Urine Bilirubin Urine Urobilinogen Ur Leukocyte Esterase Urine RBC Urine WBC Ur Squamous Epith Cells Urine Bacteria 06/03/19 06/03/19 21:32 22:38 WBC RBC Hgb Hct MCV MCH MCHC RDW Plt Count MPV Neut % (Auto) Lymph % (Auto) [place] % (Auto) Eos % (Auto) Baso % (Auto) Neut # (Auto) Lymph # (Auto) [place] # (Auto) Eos # (Auto) Baso # (Auto) Total Counted Neutrophils % (Manual) Band Neutrophils % Lymphocytes % (Manual) Monocytes % (Manual) Metamyelocytes % Platelet Estimate RBC Morphology Hypochromasia Anisocytosis Macrocytosis Stomatocytes Specimen Source O2 % ABG pH ABG pCO2 ABG pO2 ABG HCO3 ABG Total CO2 ABG O2 Saturation ABG Base Excess Kyle Test Vent Rate Tidal Volume Sodium Potassium Chloride Carbon Dioxide Anion Gap BUN Creatinine Estimated Creat Clear Estimated GFR Est GFR ( Amer) Glucose POC Glucose 117 H Lactate Calcium Total Bilirubin AST ALT Alkaline Phosphatase Troponin I 0.03 B-Natriuretic Peptide Total Protein Albumin Globulin Albumin/Globulin Ratio Urine Color Urine Appearance Urine pH Ur Specific [place] Urine Protein Urine Glucose (UA) Urine Ketones Urine Blood Urine Nitrate Urine Bilirubin Urine Urobilinogen Ur Leukocyte Esterase Urine RBC Urine WBC Ur Squamous Epith Cells Urine Bacteria DS: Diagnosis - Discharge Diagnosis (1) Pseudomonas pneumonia Status: Acute (2) Acute exacerbation of chronic obstructive airways disease Status: Acute (3) Acute on chronic systolic CHF (congestive heart failure) Status: Resolved (4) Coronary artery disease Status: Acute (5) Fall at home Status: Acute (6) Atrial flutter Status: Acute Discharge Plan - Patient Discharge Instructions ACTIVITY: Continue current activity DIET: continue same diet Patient Instructions: Chronic Obstructive Pulmonary Disease, Heart Failure, Coronary Artery Disease, Atrial Flutter, Heart-Healthy Diet, DI for Heart Failure, DI for Chronic Obstructive Pulmonary Disease, DI for Pneumonia -- Adult, DI for Atrial Flutter, How to Prevent Falls, DI for Coronary Artery Disease, DI for Respiratory Failure, Respiratory Failure - Follow up Plan Unknown provider or service follow up:: 06/05/19 07:23 Physician of your choosing in [place] Disposition: Home, Self-Fpc Medications: Home Medications Medication Instructions Recorded Confirmed Type albuterol sulfate HFA 90 2 puff INHALATION Q4HP PRN 03/27/18 05/27/19 History mcg/actuation aerosol inhaler aspirin 325 mg tablet 325 mg PO DAILY 03/27/18 05/26/19 History atorvastatin 80 mg tablet 80 mg PO HS 03/27/18 05/26/19 History carvedilol 25 mg tablet 25 mg PO BID 03/27/18 05/26/19 History fluoxetine 40 mg capsule 40 mg PO DAILY 03/27/18 05/26/19 History montelukast 10 mg tablet 10 mg PO HS 03/27/18 05/26/19 History ranitidine 150 mg capsule 150 mg PO HS 03/27/18 05/26/19 History sacubitril 24 mg-valsartan 26 mg 1 tab PO BID 03/27/18 05/26/19 History tablet Apixaban [Eliquis] 5 mg PO BID 12/17/18 05/26/19 History Melatonin 5 mg PO HS 12/18/18 05/26/19 History Spironolactone [Spironolactone 25 mg PO DAILY 12/18/18 05/26/19 History 25mg Tablet] Furosemide [Furosemide 40MG tAB] 40 mg PO DAILY 05/26/19 05/26/19 History Guaifenesin/Dextromethorphan 1 tab PO DAILY 05/26/19 05/26/19 History [Mucinex Dm ER 1,200-60 mg Tab] Fluticasone Propion/Salmeterol 1 puff IH BID 05/27/19 05/27/19 History [Fluticasone-Salmeterol 250-50] Isosorbide Mononitrate [Imdur 30mg 30 mg PO DAILY 05/27/19 05/27/19 History ER tablet] Digoxin [Digoxin 0.125mg Tablet] 125 mcg PO DAILY #30 tab 06/05/19 Rx Prescriptions/Medication Reconciliation: New Digoxin [Digoxin 0.125mg Tablet] 125 mcg PO DAILY #30 tab Continued aspirin 325 mg tablet 325 mg PO DAILY fluoxetine 40 mg capsule 40 mg PO DAILY carvedilol 25 mg tablet 25 mg PO BID albuterol sulfate HFA 90 mcg/actuation aerosol inhaler 2 puff INHALATION Q4HP PRN PRN Reason: Shortness Of Breath ranitidine 150 mg capsule 150 mg PO HS sacubitril 24 mg-valsartan 26 mg tablet 1 tab PO BID montelukast 10 mg tablet 10 mg PO HS atorvastatin 80 mg tablet 80 mg PO HS Apixaban [Eliquis] 5 mg PO BID Guaifenesin/Dextromethorphan [Mucinex Dm ER 1,200-60 mg Tab] 1 tab PO DAILY Furosemide [Furosemide 40MG tAB] 40 mg PO DAILY Fluticasone Propion/Salmeterol [Fluticasone-Salmeterol 250-50] 1 puff IH BID Melatonin 5 mg PO HS Isosorbide Mononitrate [Imdur 30mg ER tablet] 30 mg PO DAILY Discontinued Spironolactone [Spironolactone 25mg Tablet] 25 mg PO DAILY
== END 2019-06-05 10:43 | disposition home or self-care (01) | DRG 177 ==
LOC: ER 13:30 → 2ND 17:28
PROVIDERS: ADMIT Internal Medicine Adolescent Medicine; ATTEND Family Medicine
CPT/HCPCS: 36415; 70450; 71010; 71045; 74177; 80048; 80053; 81001; 82803; 82962; 83605; 83880; 84484; 85007; 85025; 87040; 87070; 87077; 87186; 87205; 93005; 93306; 94640; 94660; 94761; 96374; 97110; 97116; 97162; 97530; 99282; J0456; J1956; Q9967